=== PATIENT | male | born 1955 | race Caucasian/White ===

== ENCOUNTER 2023-03-02 19:33 | Emergency (ER) | payer MEDICARE, SELFPAY ==
--- NOTE | ~2023-03-02 | XR_ITS ---
EXAMINATION: XR chest 2V DATE: 03/02/2023 22:55 INDICATION: Cough and shortness of breath TECHNIQUE: PA and lateral views of the chest are obtained. COMPARISON: 05/10/2020 FINDINGS: The lungs are free of acute opacities. No pleural effusion or pneumothorax. The cardiomedia stinal silhouette is normal. There is mild thoracic spondylosis. There is a healing anterolateral fra cture of the right sixth rib. Shoulder arthroplasties are noted. IMPRESSION: 1. No acute cardiopulmonary abnormality. Reviewed, dictated and finalized at location L.
--- NOTE | ~2023-03-02 | CT_ITS ---
EXAMINATION: CTA chest PE protocol DATE: 03/03/2023 07:27 INDICATION: Chest pain. COVID-19 positive. TECHNIQUE: Computed tomography angiography (CTA) of the chest was performed with 100 mL Omnipaque-350 intravenous contrast timed to evaluate the pulmonary arteries. Coronal maximum intensity projection 3D-reconstructions were created by the technologist. Automated exposure control and iterative reconst ruction technique were employed. The dose-length product was 1130.11 mGy-cm. COMPARISON: Chest CT 05/05/2012 FINDINGS: There is mild atelectasis bilaterally. No pleural effusion. The heart size is normal. There are coronary artery calcifications. No pericardial effusion. There is no pulmonary embolus. There ar e cysts in the liver measuring up to 3.8 cm. There are masses in the adrenal glands measuring up to 1 3 mm on the left measuring soft tissue attenuation, likely adenomas in the absence of known malignanc y. There is a small sliding hiatal hernia. There are bilateral shoulder arthroplasties. There is assistant associate full professor ana paula anterior wedging of T11 and T12 vertebral bodies. There is mild thoracic spondylosis. IMPRESSION: 1. No pulmonary embolus. Sensitivity is moderately decreased by motion artifact. Reviewed, dictated and finalized at location A. IMPRESSION: 1. No pulmonary embolus. Sensitivity is moderately decreased by motion artifact .
[2023-03-02 20:00] VITALS: BP 107/82; PULSE 83; RESP 18; TEMP 36.3; O2SAT 97
--- NOTE | 2023-03-02 20:07 | ECG_ITS ---
Measurements Intervals [place] Rate: 81 P: 65 TX: 153 QRS: 48 QRSD: 85 T: 52 QT: 351 QTc: 408 Interpretive Statements SINUS RHYTHM NO PREVIOUS ECG AVAILABLE FOR COMPARISON Electronically Signed On 03-03-2023 15:56:40 CDT by Anthony Zavala M.D.
[2023-03-02 20:26] LABS: Basophils Percent Auto 0.2 % (0.2-1.2); Eosinophils Percent Auto 0.2 % (0-4.4); Hematocrit 32.8 % (42.0-52.0); Hemoglobin 10.2 g/dL (14.0-18.0); Immature Granulocyte Absolute 0.02 K/mm3 (0.00-0.031); Immature Granulocyte Percent A 0.4 % (0-0.5); Lymphocytes Absolute Auto 1.33 K/mm3 (0.9-3.2); Lymphocytes Percent Auto 24.7 % (18.3-44.2); Mean Corpuscular HGB Conc 31.1 g/dl (32-36); Mean Corpuscular Hemoglobin 21.5 pg (26-34); Mean Corpuscular Volume 69.1 fl (80-100); Mean Platelet Volume 8.4 fl (7.4-10.4); Monocytes Absolute Auto 0.6 K/mm3 (0.1-0.6); Monocytes Percent Auto 10.9 % (2.6-8.5); Neutrophils Absolute Auto 3.4 K/mm3 (1.3-6.7); Neutrophils Percent Auto 63.6 % (45.5-73.1); Platelet Count Result 300 k/mm3 (150-375); Red Blood Count 4.75 M/mm3 (4.6-6.20); Red Cell Distribution Width 18.6 % (11.5-14.5); White Blood Count 5.4 K/mm3 (4.5-10.0)
[2023-03-02 20:43] LABS: INR 1.1; Prothrombin Time 13.5 Seconds (11.1-14.7)
[2023-03-02 20:44] LABS: Partial Thromboplastin Time 22.8 SECONDS (22.3-36.8)
[2023-03-02 20:50] LABS: Alanine Aminotransferase 92 U/L (6-50); Albumin Level 4.7 g/dL (3.5-5.1); Alkaline Phosphatase 76 U/L (38-126); Anion Gap 11 mmol/L (8-16); Aspartate Amino Transferase 83 U/L (17-59); Bilirubin,Total 0.7 mg/dL (0.2-1.3); Blood Urea Nitrogen 21 mg/dL (9-20); Calcium 9.8 mg/dL (8.4-10.2); Carbon Dioxide 21 mmol/L (22-30); Chloride 104 mmol/L (98-107); Estimated CRCL calculation 100 ml/min; Estimated Glomerular Filt Rate > 60; Glucose 163 mg/dL (65-110); Lipase 41 U/L (23-300); Sodium 136 mmol/L (137-145)
[2023-03-02 20:59] LABS: Platelet Estimate Adequate (Adequate)
[2023-03-02 21:00] LABS: Anisocytosis 2+ (NORMAL); Hypochromasia 1+ (NORMAL); Schistocytes None Seen (NORMAL)
[2023-03-02 21:19] LABS: Troponin I < 0.012 ng/mL (0.000-0.034)
[2023-03-03] VITALS (30 sets, daily range): BP systolic 147–224; BP diastolic 53–213; PULSE 78–108; RESP 13–20; TEMP 36.4; O2SAT 95–100
[2023-03-03 02:36] LABS: Troponin I < 0.012 ng/mL (0.000-0.034)
--- NOTE | 2023-03-03 04:30 | PC.NURSE ---
Patient loses thought process while trying to answer questions. Patient's states that this is new every since patient has been tested positive for COVID-19.
[2023-03-03] MEDS: SODIUM CHLORIDE 0.9% IV 1,000 ML 999 ML IV CONT (05:30)
[2023-03-03] MEDS: ONDANSETRON INJ 4 MG/2 ML VIAL IV PUSH (05:34)
[2023-03-03] MEDS: BENZONATATE 100 MG CAPSULE 200 MG PO (05:41)
[2023-03-03 06:09] LABS: Troponin I 0.015 ng/mL (0.000-0.034)
[2023-03-03 06:37] LABS: D Dimer 0.41 ug/mL (<0.48)
--- NOTE | 2023-03-03 06:45 | ED.GENADULT ---
HPI - General Adult General Chief complaint: Nausea/Vomiting/Diarrhea <Rubén Bravo MD - Last Filed: 03/03/23 06:51> Stated complaint: COVID+, N/V <Rubén Bravo MD - Last Filed: 03/03/23 06:51> Time Seen by Provider: 03/03/23 04:36 <Rubén Bravo MD - Last Filed: 03/03/23 06:51> History of Present Illness HPI narrative: 67-year-old gentleman who presents the emergency department with chief complaint of nausea vomiting cough chest pain with cough. Patient reports that he was diagnosed with COVID-19 on Thursday and was started on Paxlovid patient reports that he has not really been eating and drinking much felt a little short of breath with ambulation and at rest and today he started having nausea and vomiting. Patient reports has not really been able to keep much fluid down reports no diarrhea states that the pain in his chest is more of a pleuritic sharp pain worse with cough. <Rubén Bravo MD - Last Filed: 03/03/23 06:51> Related Data Home medications: Home Medications Medication Instructions Recorded Confirmed adalimumab 40 mg/0.4 mL 40 mg subcut WEEKLY 09/15/22 01/02/23 subcutaneous pen kit (Humira(CF) Pen) atorvastatin 10 mg tablet 10 mg PO DAILY 09/15/22 01/02/23 citalopram 40 mg tablet 20 mg PO DAILY 09/15/22 01/02/23 pantoprazole 40 mg tablet,delayed 40 mg PO DAILY 09/15/22 01/02/23 release adalimumab 40 mg/0.8 mL See Rx Instructions subcut .COMPLEX 02/25/23 subcutaneous syringe kit (Humira) <Rubén Bravo MD - Last Filed: 03/03/23 06:51> Allergies/adverse reactions: Allergies Allergy/AdvReac Type Severity Reaction Status Date / Time No Known Allergies Allergy Verified 03/03/23 04:25 <Rubén Bravo MD - Last Filed: 03/03/23 06:51> Review of Systems Review of Systems: A 10 system review of systems was completed on the patient and is negative except for what is stated in the HPI. Nursing and ancillary documentation was reviewed. <Rubén Bravo MD - Last Filed: 03/03/23 06:51> PMFSH Past Medical History Medical History: Medical History Arthritis Psychosis <Rubén Bravo MD - Last Filed: 03/03/23 06:51> Surgical History Surgical History: Surgical History H/O hand surgery H/O knee surgery H/O shoulder surgery History of carpal tunnel release <Rubén Bravo MD - Last Filed: 03/03/23 06:51> Family History Family History: Family History Mother Cerebrovascular accident <Rubén Bravo MD - Last Filed: 03/03/23 06:51> Social History Social History: Social History Smoking status: Never smoker Alcohol intake: current Substance use: unknown Lack of Transportation: No Lack of Food: Never True Current Housing: I Do Not Have Housing Concerned About Future Housing: No Difficulty Paying Gas/Electric Bills: No Difficulty Paying for Meds: No Currently Unemployed: No Education: High School Diploma/GED Difficulty w/ Childcare or Family Care: No <Rubén Bravo MD - Last Filed: 03/03/23 06:51> Exam Narrative: GENERAL: Well-appearing, well-nourished, and in no acute distress. HEAD: Normocephalic, atraumatic. EYES: PERRLA and EOMI. ENT: Nares clear, no rhinorrhea or epistaxis. Mucous membranes moist. NECK: Supple. CHEST: Clear to auscultation. No respiratory distress. HEART: Regular rate and rhythm. No murmur heard. Normal peripheral pulses. ABDOMEN: Soft, nontender, nondistended, normal active bowel sounds. EXTREMITIES: Normal range of motion. No edema. SKIN: Warm, dry, no rash. NEURO: No focal deficits. Alert and oriented x3. PSYCH: Normal
--- NOTE | 2023-03-03 08:45 | PC.NURSE ---
walking pulse ox - 96% while walking
== END 2023-03-03 08:53 | disposition home or self-care (01) ==
PROVIDERS: Emergency Medicine; Emergency Provider General Practice; PCP Physician Assistant
DX: U07.1 COVID-19 (principal); R11.2 Nausea with vomiting, unspecified; M19.90 Unspecified osteoarthritis, unspecified site; R07.9 Chest pain, unspecified
CPT/HCPCS: 36415; 71046; 71275; 80053; 83690; 84484; 85025; 85380; 85610; 85730; 93005; 96361; 96374; 96375; 99282; 99284; A9270; J0131; J2405; J7030; Q9967

== ENCOUNTER 2023-04-03 08:26 | Outpatient (CLI) | payer MEDICARE, SELFPAY ==
--- NOTE | ~2023-04-03 | XR_ITS ---
EXAMINATION: XR lumbar spine min 4V DATE: 04/03/2023 08:51 INDICATION: Spinal stenosis, lumbar region. TECHNIQUE: 4 views of lumbar spine including flexion and extension views were obtained. COMPARISON: CT chest, abdomen, and pelvis 05/05/2012 FINDINGS: L5 is a transitional segment. There is 6 degrees levocurvature of lumbar spine. There is 3 mm retrolisthesis of L1 on L2 and L2 on L3 and 3 mm anterolisthesis of L3 on L4. There is no abnormal motion with flexion or extension. There is a chronic compression fracture of T11 with 1/5 loss of he ight. There is moderately decreased disc height at T12-L1, mildly decreased disc height at L1-L2, mod erately decreased disc height at L2-L3, mildly decreased disc height at L3-L4, and severely decreased disc height at L4-L5. There is severe bilateral facet joint osteoarthritis from T12-L1 through L4-L5 . IMPRESSION: 1. Severe lumbar spondylosis. Reviewed, dictated and finalized at location A.
--- NOTE | ~2023-04-03 | CT_ITS ---
EXAMINATION: CT lumbar spine wo con DATE: 04/03/2023 08:44 INDICATION: Spinal stenosis. Back pain. TECHNIQUE: Computed tomography (CT) of the lumbar spine was performed without intravenous contrast. A utomated exposure control and iterative reconstruction technique were employed. The dose-length produ ct was 1337.40 mGy-cm. COMPARISON: Lumbar spine radiographs 04/03/2023, CT chest, abdomen, and pelvis 05/05/2012 FINDINGS: L5 is a transitional segment. There is a chronic compression fracture of T11 with 1/5 loss of height. There is 3 mm retrolisthesis of L1 on L2 and 3 mm anterolisthesis of L3 on L4. There is mi ldly decreased disc height at T11-T12, moderately decreased disc height at T12-L1, mildly decreased d isc height at L1-L2, moderately decreased disc height at L2-L3, mildly decreased disc at L3-L4, and s everely decreased disc height at L4-L5 with endplate remodeling. The following disc levels are specif ically discussed: T11-T12: The disc is bulging. There is severe bilateral facet joint osteoarthritis. There is mild kayla ateral neural foraminal stenosis. There is mild central canal stenosis. T12-L1: The disc is bulging. There is severe bilateral facet joint osteoarthritis. There is mild bila teral neural foraminal stenosis. There is mild central canal stenosis. L1-L2: The disc is bulging. There is severe bilateral facet joint osteoarthritis. There is moderate b ilateral neural foraminal stenosis. There is mild central canal stenosis. L2-L3: The disc is bulging. There is severe bilateral facet joint osteoarthritis. There is moderate b ilateral neural foraminal stenosis. There is mild central canal stenosis. L3-L4: The disc is bulging. There is severe bilateral facet joint osteoarthritis. There is moderate b ilateral neural foraminal stenosis. There is moderate central canal stenosis. L4-L5: The disc is bulging. There is severe bilateral facet joint osteoarthritis. There is moderate b ilateral neural foraminal stenosis. There is mild central canal stenosis. L5-S1: The disc does not extend beyond the endplate margin. There is mild bilateral facet joint hyper trophy. There is mild left neural foraminal stenosis. There is no central canal stenosis. IMPRESSION: 1. Severe lumbar spondylosis. Reviewed, dictated and finalized at location A.
== END 2023-04-03 08:27 | disposition home or self-care (01) ==
PROVIDERS: PCP Physician Assistant; Visit Provider Neurological Surgery
DX: M48.061 Spinal stenosis, lumbar region without neurogenic claudication (principal); M47.896 Other spondylosis, lumbar region
CPT/HCPCS: 72110; 72131

== ENCOUNTER 2023-05-29 12:11 | Outpatient (CLI) | payer MEDICARE, SELFPAY ==
[2023-05-29 12:45] LABS: Basophils Absolute Auto 0.1 K/mm3 (0.0-0.1); Basophils Percent Auto 0.8 % (0.2-1.2); Eosinophils Absolute Auto 0.1 K/mm3 (0-0.3); Eosinophils Percent Auto 2.1 % (0-4.4); Hematocrit 28.1 % (42.0-52.0); Immature Granulocyte Absolute 0.01 K/mm3 (0.00-0.031); Immature Granulocyte Percent A 0.2 % (0-0.5); Lymphocytes Absolute Auto 2.43 K/mm3 (0.9-3.2); Lymphocytes Percent Auto 36.9 % (18.3-44.2); Mean Corpuscular HGB Conc 28.5 g/dl (32-36); Mean Corpuscular Hemoglobin 20.1 pg (26-34); Mean Corpuscular Volume 70.4 fl (80-100); Mean Platelet Volume 8.8 fl (7.4-10.4); Monocytes Absolute Auto 0.8 K/mm3 (0.1-0.6); Neutrophils Absolute Auto 3.2 K/mm3 (1.3-6.7); Platelet Count Result 412 k/mm3 (150-375); Red Blood Count 3.99 M/mm3 (4.6-6.20); Red Cell Distribution Width 17.3 % (11.5-14.5); White Blood Count 6.6 K/mm3 (4.5-10.0)
[2023-05-29 12:55] LABS: Iron 24 ug/dL (49-181)
[2023-05-29 13:08] LABS: Percent Iron Saturation 5 % (20-50)
[2023-05-29 13:23] LABS: Anisocytosis 2+ (NORMAL); Hypochromasia 2+ (NORMAL); Microcytosis 1+ (NORMAL); Ovalocytes 1+ (NORMAL); Schistocytes None Seen (NORMAL)
[2023-05-29 13:32] LABS: Ferritin 9.97 ng/mL (11.1-264)
== END 2023-05-29 12:12 | disposition home or self-care (01) ==
PROVIDERS: PCP Physician Assistant; Visit Provider Physician Assistant
DX: D64.9 Anemia, unspecified (principal)
CPT/HCPCS: 36415; 82728; 83540; 83550; 85025

== ENCOUNTER 2023-06-18 08:00 | Outpatient (NON) | payer MEDICARE, SELFPAY | END 2023-06-18 08:01 | disposition home or self-care (01) | LOC: ANHLAB 06-19 08:07 | PROVIDERS: PCP Physician Assistant; Visit Provider Internal Medicine Gastroenterology | DX: D50.9 Iron deficiency anemia, unspecified (principal) | CPT/HCPCS: 88305; 88342 ==

== ENCOUNTER 2023-06-18 09:36 | Day surgery (SDC) | payer MEDICARE, SELFPAY ==
[2023-06-04 08:34] VITALS: BMI 37.6
[2023-06-05 12:23] VITALS: BMI 36.6
--- NOTE | 2023-06-17 12:50 | WPDANESEPPF ---
Anes - Initial Pre Proc Eval Procedure: Operation Date: 06/18/23 11:30 Proposed Procedures p Esophagogastroduodenoscopy - Rex Cedeño MD s Diagnostic Colonoscopy - Rex Cedeño MD Date/Time: 06/17/23 12:50 Surgeon: Rex Cedeño MD Pre Op Diagnosis: Iron Deficiency Anemia Patient Data Age: 67 Gender: M Height: 1.8 m Weight: 119 kg Allergies Allergy/AdvReac Type Severity Reaction Status Date / Time No Known Allergies Allergy Verified 06/18/23 10:20 Home Medications Medication Instructions Recorded Confirmed Type adalimumab 40 mg/0.4 mL 40 mg subcut WEEKLY 09/15/22 06/18/23 History subcutaneous pen kit (Humira(CF) Pen) citalopram 40 mg tablet 20 mg PO DAILY 09/15/22 06/18/23 History pantoprazole 40 mg tablet,delayed 40 mg PO DAILY 09/15/22 06/18/23 History release buspirone 5 mg tablet See Rx Instructions .Route 02/15/23 06/18/23 Rx .COMPLEX #300 tabs gabapentin 400 mg capsule See Rx Instructions .Route 02/15/23 06/18/23 Rx .COMPLEX #200 caps amlodipine 5 mg tablet 5 mg PO DAILY #90 tabs 02/16/23 06/18/23 Rx adalimumab 40 mg/0.8 mL See Rx Instructions subcut .COMPLEX 02/25/23 06/18/23 History subcutaneous syringe kit (Humira) methotrexate sodium 2.5 mg tablet 7.5 mg PO WEEKLY #3 tabs 02/25/23 06/18/23 Rx lisinopril 40 mg tablet See Rx Instructions .Route 03/23/23 06/18/23 Rx .COMPLEX #100 tabs fluticasone 250 mcg-salmeterol 50 1 inh inhalation BID #60 ea 03/31/23 06/18/23 Rx mcg/dose blistr powdr for inhalation (Advair Diskus) folic acid 1 mg tablet 2 mg PO DAILY #180 tabs 03/31/23 06/18/23 Rx atorvastatin 10 mg tablet 10 mg PO DAILY #90 tabs 04/20/23 06/18/23 Rx tramadol 50 mg tablet 50 mg PO Q6H PRN Back Pain 05/05/23 06/18/23 History ferrous sulfate 325 mg (65 mg 325 mg PO BID #60 tabs 05/29/23 06/18/23 Rx iron) tablet primidone 50 mg tablet 150 mg PO QHS #270 tabs 06/01/23 06/18/23 Rx sodium,potassium,mag sulfates 17.5 See Rx Instructions PO .COMPLEX 06/04/23 06/18/23 Rx gram-3.13 gram-1.6 gram oral soln #354 mL (Suprep Bowel Prep Kit) acetaminophen 650 mg 650 mg PO Q12H 06/05/23 06/18/23 History tablet,extended release (Tylenol Arthritis Pain) glucosamine sulf dipot 1 cap PO DAILY 06/05/23 06/18/23 History chlr,msm,chond 550 mg-C 30 mg-jose m 1 mg capsule (Glucosamine Chondroitin) naproxen sodium 220 mg tablet 220 mg PO BID PRN Back Pain 06/05/23 06/18/23 History (Aleve) Patient hx anesthesia problems: none Family hx anesthesia problems: none Results Review: All pre-operative results and documents have been reviewed as part of the pre-operative evaluation. [facility] Past Medical History Medical History (Updated 06/18/23 @ 11:03 by Rex Cedeño MD) Anemia Arthritis Essential tremor HTN (hypertension) Hyperlipidemia Low back pain Lumbar stenosis with neurogenic claudication Obesity (BMI 30-39.9) Psychosis Surgical History Surgical History H/O hand surgery H/O knee surgery H/O shoulder surgery History of carpal tunnel release Family History Family History Mother Cerebrovascular accident Social History Social History Smoking status: Never smoker Alcohol intake: current Substance use: never Substance use type: does not use Lack of Transportation: No Lack of Food: Never True Current Housing: I Do Not Have Housing Concerned About Future Housing: No Difficulty Paying Gas/Electric Bills: No Difficulty Paying for Meds: No Currently Unemployed: No Education: High School Diploma/GED Difficulty w/ Childcare or Family Care: No Living arrangements: with family Spiritual care concerns: No Anes - Eval Final PreProcedure Day of Procedure 06/17/23 12:50 Patient weight: obese Heart: regular rate and rhythm L
[2023-06-18 10:00] VITALS: BP 164/75; PULSE 66; RESP 20; TEMP 36.1; O2SAT 99
[2023-06-18] MEDS: LACTATED RINGERS 1,000 ML 150 ML IV CONT (10:31)
--- NOTE | 2023-06-18 11:01 | PM.HPGS ---
History of Present Illness History of Present Illness Consent: Risks, benefits, and alternatives have been discussed and questions answered. Patient agrees to proceed with procedure. Chief complaint: Iron Deficiency Anemia Narrative: Sarath Pineda is a 67 year old male Presents for colonoscopy an EGD. Patient has back problems. Was anticipated to have surgery the end of April. Upon presenting for preoperative testing was found to have profound anemia. Lab studies revealed this to be iron deficient anemia. Patient denies any obvious bleeding. He has no nose bleeds. No bruises. No obvious blood in his stool. He has not had a stool Hemoccult. Patient does take significant NSAIDs because of back pain. This includes ibuprofen and Aleve. Family history noncontributory. Patient referred for GI endoscopy because of anemia. Review of Systems Review of Systems: Review of systems noncontributory. [facility] Past Medical History Medical History (Updated 06/18/23 @ 11:03 by Rex Cedeño MD) Anemia Arthritis Essential tremor HTN (hypertension) Hyperlipidemia Low back pain Lumbar stenosis with neurogenic claudication Obesity (BMI 30-39.9) Psychosis Surgical History Surgical History H/O hand surgery H/O knee surgery H/O shoulder surgery History of carpal tunnel release Family History Family History Mother Cerebrovascular accident Social History Social History Smoking status: Never smoker Alcohol intake: current Substance use: never Substance use type: does not use Lack of Transportation: No Lack of Food: Never True Current Housing: I Do Not Have Housing Concerned About Future Housing: No Difficulty Paying Gas/Electric Bills: No Difficulty Paying for Meds: No Currently Unemployed: No Education: High School Diploma/GED Difficulty w/ Childcare or Family Care: No Living arrangements: with family Spiritual care concerns: No Meds Home Medications and Allergies Home Medications Medication Instructions Recorded Confirmed Type adalimumab 40 mg/0.4 mL 40 mg subcut WEEKLY 09/15/22 06/18/23 History subcutaneous pen kit (Humira(CF) Pen) citalopram 40 mg tablet 20 mg PO DAILY 09/15/22 06/18/23 History pantoprazole 40 mg tablet,delayed 40 mg PO DAILY 09/15/22 06/18/23 History release buspirone 5 mg tablet See Rx Instructions .Route 02/15/23 06/18/23 Rx .COMPLEX #300 tabs gabapentin 400 mg capsule See Rx Instructions .Route 02/15/23 06/18/23 Rx .COMPLEX #200 caps amlodipine 5 mg tablet 5 mg PO DAILY #90 tabs 02/16/23 06/18/23 Rx adalimumab 40 mg/0.8 mL See Rx Instructions subcut .COMPLEX 02/25/23 06/18/23 History subcutaneous syringe kit (Humira) methotrexate sodium 2.5 mg tablet 7.5 mg PO WEEKLY #3 tabs 02/25/23 06/18/23 Rx lisinopril 40 mg tablet See Rx Instructions .Route 03/23/23 06/18/23 Rx .COMPLEX #100 tabs fluticasone 250 mcg-salmeterol 50 1 inh inhalation BID #60 ea 03/31/23 06/18/23 Rx mcg/dose blistr powdr for inhalation (Advair Diskus) folic acid 1 mg tablet 2 mg PO DAILY #180 tabs 03/31/23 06/18/23 Rx atorvastatin 10 mg tablet 10 mg PO DAILY #90 tabs 04/20/23 06/18/23 Rx tramadol 50 mg tablet 50 mg PO Q6H PRN Back Pain 05/05/23 06/18/23 History ferrous sulfate 325 mg (65 mg 325 mg PO BID #60 tabs 05/29/23 06/18/23 Rx iron) tablet primidone 50 mg tablet 150 mg PO QHS #270 tabs 06/01/23 06/18/23 Rx sodium,potassium,mag sulfates 17.5 See Rx Instructions PO .COMPLEX 06/04/23 06/18/23 Rx gram-3.13 gram-1.6 gram oral soln #354 mL (Suprep Bowel Prep Kit) acetaminophen 650 mg 650 mg PO Q12H 06/05/23 06/18/23 History tablet,extended release (Tylenol Arthritis Pain) glucosamine sulf dipot 1 cap PO DAILY 06/05/23 06/18/23 History chlr,msm,chond 550 mg-C 30 mg-m
[2023-06-18 12:47] VITALS: BP 105/69; PULSE 75; RESP 16; O2SAT 97
--- NOTE | 2023-06-18 12:54 | WPDANESPN ---
Anes - Prog Note Post-Op Date/Time: 06/18/23 12:54 Cardiovascular status: normal Respiratory status: normal Airway patency: baseline Mental status: baseline Post-Op hydration status: normal Vital Signs: Last Vital Signs Temp 36.1 C L 06/18/23 10:00 Pulse 75 06/18/23 12:50 Resp 16 06/18/23 12:50 BP 105/69 06/18/23 12:50 Pulse Ox 97 06/18/23 12:50 O2 Del Method Room Air 06/18/23 12:50 Pain Score (VAS): 0 I/O: Intake & Output 06/17/23 06/18/23 06/18/23 23:59 07:59 15:59 Intake Total 200 Balance 200 Post-procedural complaints: none Patient Feedback: Patient satisfied with anesthetic care.
[2023-06-18 12:57] VITALS: BP 136/74; PULSE 72; RESP 16; O2SAT 98
[2023-06-18 13:07] VITALS: BP 138/75; PULSE 75; RESP 16; O2SAT 98
== END 2023-06-18 13:22 | disposition home or self-care (01) ==
PROVIDERS: PCP Physician Assistant; Visit Provider Internal Medicine Gastroenterology
PROC: 0DJ08ZZ Inspection of Upper Intestinal Tract, Via Natural or Artificial Opening Endoscopic (ICD-10-PCS; CPT 43235; principal; 2023-06-18 11:30)
PROC: 0DJD8ZZ Inspection of Lower Intestinal Tract, Via Natural or Artificial Opening Endoscopic (ICD-10-PCS; CPT 45378; 2023-06-18 11:30)
DX: D50.9 Iron deficiency anemia, unspecified (principal)
CPT/HCPCS: 45378; 43239

== ENCOUNTER 2023-06-25 11:47 | Outpatient (CLI) | payer MEDICARE, SELFPAY ==
[2023-06-25 13:58] LABS: Basophils Percent Auto 0.5 % (0.2-1.2); Eosinophils Absolute Auto 0.1 K/mm3 (0-0.3); Eosinophils Percent Auto 1.4 % (0-4.4); Hematocrit 36.8 % (42.0-52.0); Hemoglobin 10.9 g/dL (14.0-18.0); Immature Granulocyte Absolute 0.01 K/mm3 (0.00-0.031); Immature Granulocyte Percent A 0.2 % (0-0.5); Lymphocytes Percent Auto 38.1 % (18.3-44.2); Mean Corpuscular HGB Conc 29.6 g/dl (32-36); Mean Corpuscular Volume 77.6 fl (80-100); Monocytes Absolute Auto 0.7 K/mm3 (0.1-0.6); Monocytes Percent Auto 11.6 % (2.6-8.5); Neutrophils Percent Auto 48.2 % (45.5-73.1); Platelet Count Result 338 k/mm3 (150-375); Red Blood Count 4.74 M/mm3 (4.6-6.20); Red Cell Distribution Width 24.7 % (11.5-14.5); White Blood Count 6.3 K/mm3 (4.5-10.0)
[2023-06-25 14:34] LABS: Anisocytosis 1+ (NORMAL); Hypochromasia 1+ (NORMAL); Ovalocytes 1+ (NORMAL); Platelet Estimate Adequate (Adequate); Schistocytes None Seen (NORMAL)
[2023-06-25 16:48] LABS: Iron 242 ug/dL (49-181)
[2023-06-25 17:03] LABS: Percent Iron Saturation 52 % (20-50)
== END 2023-06-25 11:48 | disposition home or self-care (01) ==
PROVIDERS: PCP Physician Assistant; Visit Provider Physician Assistant
DX: D50.9 Iron deficiency anemia, unspecified (principal); D64.9 Anemia, unspecified
CPT/HCPCS: 36415; 82728; 83540; 83550; 85025

== ENCOUNTER 2023-07-14 11:44 | Outpatient (CLI) | payer MEDICARE, SELFPAY ==
[2023-07-14 12:13] LABS: Basophils Absolute Auto 0.1 K/mm3 (0.0-0.1); Basophils Percent Auto 0.7 % (0.2-1.2); Eosinophils Absolute Auto 0.1 K/mm3 (0-0.3); Eosinophils Percent Auto 1.2 % (0-4.4); Hematocrit 39.3 % (42.0-52.0); Hemoglobin 12.2 g/dL (14.0-18.0); Immature Granulocyte Absolute 0.01 K/mm3 (0.00-0.031); Immature Granulocyte Percent A 0.1 % (0-0.5); Lymphocytes Absolute Auto 2.91 K/mm3 (0.9-3.2); Lymphocytes Percent Auto 38.1 % (18.3-44.2); Mean Corpuscular Hemoglobin 24.2 pg (26-34); Mean Platelet Volume 8.3 fl (7.4-10.4); Monocytes Absolute Auto 0.8 K/mm3 (0.1-0.6); Neutrophils Absolute Auto 3.8 K/mm3 (1.3-6.7); Neutrophils Percent Auto 49.9 % (45.5-73.1); Platelet Count Result 333 k/mm3 (150-375); Red Blood Count 5.04 M/mm3 (4.6-6.20); Red Cell Distribution Width 22.2 % (11.5-14.5); White Blood Count 7.6 K/mm3 (4.5-10.0)
[2023-07-14 12:55] LABS: Anisocytosis 2+ (NORMAL); Ovalocytes 1+ (NORMAL); Platelet Estimate Adequate (Adequate); Schistocytes None Seen (NORMAL)
[2023-07-14 13:02] LABS: Iron 39 ug/dL (49-181)
[2023-07-14 13:11] LABS: Percent Iron Saturation 8 % (20-50)
== END 2023-07-14 11:45 | disposition home or self-care (01) ==
LOC: ANHLAB 11:46
PROVIDERS: PCP Physician Assistant; Visit Provider Physician Assistant
DX: D64.9 Anemia, unspecified (principal); D50.9 Iron deficiency anemia, unspecified
CPT/HCPCS: 36415; 82728; 83540; 83550; 85025

== ENCOUNTER 2023-08-20 06:02 | Day surgery (SDC) | payer MEDICARE, SELFPAY ==
[2023-06-23 14:10] VITALS: BMI 36.4
[2023-07-30 09:56] VITALS: BMI 36.8
[2023-08-20 07:07] VITALS: BMI 29.7
[2023-08-20 07:26] VITALS: BP 161/81; PULSE 65; RESP 20; TEMP 35.9; O2SAT 96
--- NOTE | 2023-08-20 07:33 | PM.HPGS ---
History of Present Illness History of Present Illness Consent: Risks, benefits, and alternatives have been discussed and questions answered. Patient agrees to proceed with procedure. Chief complaint: Acute Gastric Ulcer Narrative: Sarath Pineda is a 67 year old male he presents for EGD. Two months ago an EGD was performed which found patient to have gastric ulcer. Patient has now been on therapy with iron replacements was all 40mg p.o. daily. He abdominal pain. He has noticed no bleeding. His energy level has resolved. Presents today for follow-up EGD to document healing of ulcer. Review of Systems Review of Systems: Review of systems is noncontributory. [facility] Past Medical History Medical History (Updated 08/20/23 @ 07:35 by Rex Cedeño MD) Anemia Arthritis Essential tremor HTN (hypertension) Hyperlipidemia Low back pain Lumbar stenosis with neurogenic claudication Obesity (BMI 30-39.9) Psychosis Surgical History Surgical History H/O hand surgery H/O knee surgery H/O shoulder surgery History of carpal tunnel release Family History Family History Mother Cerebrovascular accident Social History Social History Smoking status: Never smoker Alcohol intake: current Substance use: never Substance use type: does not use Lack of Transportation: No Lack of Food: Never True Current Housing: I Do Not Have Housing Concerned About Future Housing: No Difficulty Paying Gas/Electric Bills: No Difficulty Paying for Meds: No Currently Unemployed: No Education: High School Diploma/GED Difficulty w/ Childcare or Family Care: No Living arrangements: with family Spiritual care concerns: No Meds Home Medications and Allergies Home Medications Medication Instructions Recorded Confirmed Type gabapentin 400 mg capsule See Rx Instructions .Route 02/15/23 07/30/23 Rx .COMPLEX #200 caps amlodipine 5 mg tablet 5 mg PO DAILY #90 tabs 02/16/23 08/20/23 Rx adalimumab 40 mg/0.8 mL See Rx Instructions subcut .COMPLEX 02/25/23 08/20/23 History subcutaneous syringe kit (Humira) methotrexate sodium 2.5 mg tablet 7.5 mg PO WEEKLY #3 tabs 02/25/23 07/30/23 Rx lisinopril 40 mg tablet See Rx Instructions .Route 03/23/23 07/30/23 Rx .COMPLEX #100 tabs fluticasone 250 mcg-salmeterol 50 1 inh inhalation BID #60 ea 03/31/23 07/30/23 Rx mcg/dose blistr powdr for inhalation (Advair Diskus) folic acid 1 mg tablet 2 mg PO DAILY #180 tabs 03/31/23 07/30/23 Rx sodium,potassium,mag sulfates 17.5 See Rx Instructions PO .COMPLEX 06/04/23 06/18/23 Rx gram-3.13 gram-1.6 gram oral soln #354 mL (Suprep Bowel Prep Kit) acetaminophen 650 mg 650 mg PO Q12H 06/05/23 08/20/23 History tablet,extended release (Tylenol Arthritis Pain) glucosamine sulf dipot 1 cap PO DAILY 06/05/23 07/30/23 History chlr,msm,chond 550 mg-C 30 mg-jose m 1 mg capsule (Glucosamine Chondroitin) atorvastatin 10 mg tablet See Rx Instructions .Route 06/29/23 08/20/23 Rx .COMPLEX #100 tabs citalopram 40 mg tablet 40 mg PO DAILY #90 tabs 07/06/23 07/30/23 Rx ferrous sulfate 325 mg (65 mg 325 mg PO DAILY 07/30/23 07/30/23 History iron) tablet buspirone 5 mg tablet See Rx Instructions .Route 08/18/23 08/20/23 Rx .COMPLEX #300 tabs pantoprazole 40 mg tablet,delayed See Rx Instructions .Route 08/18/23 Rx release .COMPLEX #100 tabs primidone 50 mg tablet See Rx Instructions .Route 08/18/23 Rx .COMPLEX #270 tabs Allergies Allergy/AdvReac Type Severity Reaction Status Date / Time No Known Allergies Allergy Verified 08/20/23 06:59 Vital Signs Vital Signs - 24 hr 08/20/23 07:26 Temperature 96.6 F L Pulse Rate 65 Respiratory Rate 20 Blood Pressure 161/81 H Pulse Oximetry 96 Oxygen Delivery Room Air
[2023-08-20] MEDS: LACTATED RINGERS 1,000 ML 150 ML IV CONT (07:55)
--- NOTE | 2023-08-20 07:56 | WPDANESEPPF ---
Anes - Initial Pre Proc Eval Procedure: Operation Date: 08/20/23 08:00 Proposed Procedures p Esophagogastroduodenoscopy - Rex Cedeño MD Date/Time: 08/20/23 07:56 Surgeon: Rex Cedeño MD Pre Op Diagnosis: Acute Gastric Ulcer Patient Data Age: 67 Gender: M Height: 1.8 m Weight: 96.6 kg Last Vital Signs Temp 35.9 C L 08/20/23 07:26 Pulse 65 08/20/23 07:26 Resp 20 08/20/23 07:26 BP 161/81 H 08/20/23 07:26 Pulse Ox 96 08/20/23 07:26 O2 Del Method Room Air 08/20/23 07:26 Allergies Allergy/AdvReac Type Severity Reaction Status Date / Time No Known Allergies Allergy Verified 08/20/23 06:59 Home Medications Medication Instructions Recorded Confirmed Type gabapentin 400 mg capsule See Rx Instructions .Route 02/15/23 07/30/23 Rx .COMPLEX #200 caps amlodipine 5 mg tablet 5 mg PO DAILY #90 tabs 02/16/23 08/20/23 Rx adalimumab 40 mg/0.8 mL See Rx Instructions subcut .COMPLEX 02/25/23 08/20/23 History subcutaneous syringe kit (Humira) methotrexate sodium 2.5 mg tablet 7.5 mg PO WEEKLY #3 tabs 02/25/23 07/30/23 Rx lisinopril 40 mg tablet See Rx Instructions .Route 03/23/23 07/30/23 Rx .COMPLEX #100 tabs fluticasone 250 mcg-salmeterol 50 1 inh inhalation BID #60 ea 03/31/23 07/30/23 Rx mcg/dose blistr powdr for inhalation (Advair Diskus) folic acid 1 mg tablet 2 mg PO DAILY #180 tabs 03/31/23 07/30/23 Rx sodium,potassium,mag sulfates 17.5 See Rx Instructions PO .COMPLEX 06/04/23 06/18/23 Rx gram-3.13 gram-1.6 gram oral soln #354 mL (Suprep Bowel Prep Kit) acetaminophen 650 mg 650 mg PO Q12H 06/05/23 08/20/23 History tablet,extended release (Tylenol Arthritis Pain) glucosamine sulf dipot 1 cap PO DAILY 06/05/23 07/30/23 History chlr,msm,chond 550 mg-C 30 mg-jose m 1 mg capsule (Glucosamine Chondroitin) atorvastatin 10 mg tablet See Rx Instructions .Route 06/29/23 08/20/23 Rx .COMPLEX #100 tabs citalopram 40 mg tablet 40 mg PO DAILY #90 tabs 07/06/23 07/30/23 Rx ferrous sulfate 325 mg (65 mg 325 mg PO DAILY 07/30/23 07/30/23 History iron) tablet buspirone 5 mg tablet See Rx Instructions .Route 08/18/23 08/20/23 Rx .COMPLEX #300 tabs pantoprazole 40 mg tablet,delayed See Rx Instructions .Route 08/18/23 Rx release .COMPLEX #100 tabs primidone 50 mg tablet See Rx Instructions .Route 08/18/23 Rx .COMPLEX #270 tabs Patient hx anesthesia problems: post op nausea/vomiting Family hx anesthesia problems: none Results Review: All pre-operative results and documents have been reviewed as part of the pre-operative evaluation. [facility] Past Medical History Medical History Anemia Arthritis Essential tremor HTN (hypertension) Hyperlipidemia Low back pain Lumbar stenosis with neurogenic claudication Obesity (BMI 30-39.9) Psychosis Surgical History Surgical History H/O hand surgery H/O knee surgery H/O shoulder surgery History of carpal tunnel release Family History Family History Mother Cerebrovascular accident Social History Social History Smoking status: Never smoker Alcohol intake: current Substance use: never Substance use type: does not use Lack of Transportation: No Lack of Food: Never True Current Housing: I Do Not Have Housing Concerned About Future Housing: No Difficulty Paying Gas/Electric Bills: No Difficulty Paying for Meds: No Currently Unemployed: No Education: High School Diploma/GED Difficulty w/ Childcare or Family Care: No Living arrangements: with family Spiritual care concerns: No Anes - Eval Final PreProcedure Day of Procedure 08/20/23 07:56 Patient weight: overweight Heart: regular rate and rhythm Lungs: clear to auscultation A
[2023-08-20 08:19] VITALS: BP 162/77; PULSE 60; RESP 14; O2SAT 96
[2023-08-20 08:29] VITALS: BP 165/76; PULSE 61; RESP 16; O2SAT 99
[2023-08-20 08:39] VITALS: BP 169/80; PULSE 62; RESP 15; O2SAT 98
--- NOTE | 2023-08-20 09:18 | WPDANESPN ---
Anes - Prog Note Post-Op Date/Time: 08/20/23 09:18 Cardiovascular status: normal Respiratory status: normal Airway patency: baseline Mental status: baseline Post-Op hydration status: normal Vital Signs: Last Vital Signs Temp 35.9 C L 08/20/23 07:26 Pulse 62 08/20/23 08:39 Resp 15 08/20/23 08:39 BP 169/80 H 08/20/23 08:39 Pulse Ox 98 08/20/23 08:39 O2 Del Method Room Air 08/20/23 08:39 Pain Score (VAS): 0 I/O: Intake & Output 08/19/23 08/20/23 08/20/23 23:59 07:59 15:59 Intake Total 600 Balance 600 Patient Feedback: Patient satisfied with anesthetic care.
== END 2023-08-20 08:44 | disposition home or self-care (01) ==
PROVIDERS: PCP Physician Assistant; Visit Provider Internal Medicine Gastroenterology
PROC: 0DJ08ZZ Inspection of Upper Intestinal Tract, Via Natural or Artificial Opening Endoscopic (ICD-10-PCS; CPT 43235; principal; 2023-08-20 08:00)
DX: K31.89 Other diseases of stomach and duodenum (principal)
CPT/HCPCS: 43239

== ENCOUNTER 2023-09-22 10:15 | Outpatient (CLI) | payer MEDICARE, SELFPAY ==
[2023-09-22 11:09] LABS: Basophils Absolute Auto 0.1 K/mm3 (0.0-0.1); Basophils Percent Auto 0.8 % (0.2-1.2); Eosinophils Absolute Auto 0.2 K/mm3 (0-0.3); Eosinophils Percent Auto 2.4 % (0-4.4); Hemoglobin 14.8 g/dL (14.0-18.0); Immature Granulocyte Absolute 0.01 K/mm3 (0.00-0.031); Immature Granulocyte Percent A 0.2 % (0-0.5); Lymphocytes Absolute Auto 2.89 K/mm3 (0.9-3.2); Lymphocytes Percent Auto 46.8 % (18.3-44.2); Mean Corpuscular HGB Conc 32.9 g/dl (32-36); Mean Corpuscular Hemoglobin 28.2 pg (26-34); Mean Corpuscular Volume 85.7 fl (80-100); Mean Platelet Volume 8.9 fl (7.4-10.4); Monocytes Absolute Auto 0.6 K/mm3 (0.1-0.6); Monocytes Percent Auto 9.1 % (2.6-8.5); Neutrophils Absolute Auto 2.5 K/mm3 (1.3-6.7); Neutrophils Percent Auto 40.7 % (45.5-73.1); Platelet Count Result 237 k/mm3 (150-375); Red Blood Count 5.25 M/mm3 (4.6-6.20); Red Cell Distribution Width 18.3 % (11.5-14.5); White Blood Count 6.2 K/mm3 (4.5-10.0)
[2023-09-22 11:21] LABS: Alanine Aminotransferase 43 U/L (6-50); Albumin Level 4.5 g/dL (3.5-5.1); Alkaline Phosphatase 56 U/L (38-126); Anion Gap 6 mmol/L (8-16); Aspartate Amino Transferase 45 U/L (17-59); Bilirubin,Total 0.5 mg/dL (0.2-1.3); Blood Urea Nitrogen 15 mg/dL (9-20); Calcium 9.7 mg/dL (8.4-10.2); Carbon Dioxide 28 mmol/L (22-30); Chloride 100 mmol/L (98-107); Cholesterol 168 mg/dL (0-200); Estimated Glomerular Filt Rate > 60; Glucose 108 mg/dL (65-110); HDL Direct 62 mg/dL; Potassium 4.2 mmol/L (3.4-5.0); Sodium 134 mmol/L (137-145); Triglycerides 164 mg/dL (<150)
[2023-09-22 11:32] LABS: LDL Cholesterol Direct 78 mg/dL
[2023-09-22 11:52] LABS: Prostate Specific Antigen 0.5 ng/mL (< OR = 4.0); Thyroid Stimulating Hormone 0.882 uIU/mL (0.465-4.680)
[2023-09-22 12:24] LABS: Iron 116 ug/dL (49-181)
[2023-09-22 12:31] LABS: Folic Acid > 20.0 ng/mL (2.76->20)
[2023-09-22 12:33] LABS: Percent Iron Saturation 33 % (20-50)
== END 2023-09-22 10:16 | disposition home or self-care (01) ==
PROVIDERS: PCP Physician Assistant; Visit Provider Physician Assistant
DX: D50.9 Iron deficiency anemia, unspecified (principal); R53.83 Other fatigue; E78.5 Hyperlipidemia, unspecified; Z12.5 Encounter for screening for malignant neoplasm of prostate
CPT/HCPCS: 36415; 80053; 80061; 82607; 82728; 82746; 83540; 83550; 84153; 84443; 85025; G0103

== ENCOUNTER 2024-02-03 08:19 | Outpatient (CLI) | payer MEDICARE, SELFPAY ==
--- NOTE | ~2024-02-03 | XR_ITS ---
Clinical Indication: Cough PA and lateral views of the chest: Comparison: 03/02/2023 Findings: Calcific density in the right lung base region is compatible sequela of underlying rib frac ture based on prior CT scan. No pulmonary abnormality evident.. Cardiomediastinal silhouette is withi n normal limits. Bilateral shoulder arthroplasties are present. Impression: No significant abnormality. Reviewed, dictated and finalized at location . [facility]MASTER Impression: No significant abnormality.
== END 2024-02-03 08:20 | disposition home or self-care (01) ==
LOC: ANHIMG 08:24
PROVIDERS: PCP Physician Assistant; Visit Provider Physician Assistant
DX: R05.9 Cough, unspecified (principal)
CPT/HCPCS: 71046

== ENCOUNTER 2024-03-31 11:43 | Observation (INO) | payer MEDICARE, SELFPAY ==
[2024-03-31] VITALS (17 sets, daily range): BP systolic 160–199; BP diastolic 56–92; PULSE 69–79; RESP 12–16; TEMP 36.2–36.7; O2SAT 95–100; BMI 34.9
--- NOTE | ~2024-03-31 | XR_ITS ---
EXAMINATION: XR chest 2V 03/31/2024 12:22 INDICATION: Chest pain PROCEDURE: 2 view chest COMPARISON: 02/03/2024 and 03/02/2023 FINDINGS: The lungs are clear. The cardiomediastinal silhouette is within normal limits. There are no pleural effusions. There is no pneumothorax suspected. There are bilateral shoulder arthroplasti es. IMPRESSION: 1: NO ACUTE CARDIOPULMONARY DISEASE. Reviewed, dictated and finalized at location B.
--- NOTE | ~2024-03-31 | CT_ITS ---
EXAMINATION: CT brain wo con DATE: 03/31/2024 12:47 INDICATION: Dizziness. Hypertension. TECHNIQUE: Computed tomography (CT) of the head was performed without intravenous contrast. The dose- length product was 681.00 mGy-cm. Automated exposure control and iterative reconstruction technique w ere employed. COMPARISON: CT dated 07/06/2007 FINDINGS: Brain parenchymal volume is normal for age. No acute intracranial hemorrhage, infarction, m ass or mass effect. No ventriculomegaly or midline shift. Normal hollingsworth-white differentiation. IMPRESSION: 1. No acute intracranial abnormality. Reviewed, dictated and finalized at location B.
--- NOTE | 2024-03-31 11:50 | ECG_ITS ---
SEE SCANNED COPY FOR CONFIRMED REPORT MTDD
[2024-03-31 12:09] LABS: Basophils Absolute Auto 0.1 K/mm3 (0.0-0.1); Basophils Percent Auto 0.8 % (0.2-1.2); Eosinophils Absolute Auto 0.2 K/mm3 (0-0.3); Eosinophils Percent Auto 2.4 % (0-4.4); Hematocrit 42.1 % (42.0-52.0); Hemoglobin 14.9 g/dL (14.0-18.0); Immature Granulocyte Absolute 0.01 K/mm3 (0.00-0.031); Immature Granulocyte Percent A 0.2 % (0-0.5); Lymphocytes Absolute Auto 3.08 K/mm3 (0.9-3.2); Mean Corpuscular HGB Conc 35.4 g/dl (32-36); Mean Corpuscular Hemoglobin 31.8 pg (26-34); Mean Platelet Volume 8.7 fl (7.4-10.4); Monocytes Absolute Auto 0.7 K/mm3 (0.1-0.6); Monocytes Percent Auto 10.5 % (2.6-8.5); Neutrophils Absolute Auto 2.6 K/mm3 (1.3-6.7); Neutrophils Percent Auto 39.1 % (45.5-73.1); Platelet Count Result 242 k/mm3 (150-375); Red Blood Count 4.68 M/mm3 (4.6-6.20); White Blood Count 6.6 K/mm3 (4.5-10.0)
--- NOTE | 2024-03-31 12:18 | ED.CHESTPAIN ---
HPI - Chest Pain General Chief Complaint: Chest Pain Stated Complaint: HTN Time Seen by Provider: 03/31/24 12:36 Source: patient, RN notes reviewed and old records reviewed Mode of arrival: ambulatory History of Present Illness HPI narrative: This is a 68 year old male with history of hypertension who presents for evaluation chest pain and hypertension. He has noticed that his blood pressure has been elevated for 4 months. He was taking amlodipine 5 mg but it was increased 4 months ago. He also reports he was recently started on hydralazine twice a day. His blood pressure is not improving so he went to urgent care. He also reports he has been having headaches and chest pain for month. He states he has pain across his chest that is constant. He is unable to fully describe pain because he has chronic pain any way. He also repoorts shortness of breath. He is concerned that his blood pressure is high despite medication. MD complaint: chest pain Related Data Home Medications Medication Instructions Recorded Confirmed adalimumab 40 mg/0.8 mL 40 mg subcut WEEKLY 02/25/23 03/31/24 subcutaneous syringe kit (Humira) acetaminophen 650 mg 650 mg PO Q12H 06/05/23 03/31/24 tablet,extended release (Tylenol Arthritis Pain) glucosamine sulf dipot 1 cap PO DAILY 06/05/23 03/31/24 chlr,msm,chond 550 mg-C 30 mg-jose m 1 mg capsule (Glucosamine Chondroitin) ferrous sulfate 325 mg (65 mg 325 mg PO DAILY 07/30/23 03/31/24 iron) tablet atorvastatin 10 mg tablet 10 mg PO DAILY 03/31/24 03/31/24 buspirone 5 mg tablet 5 mg PO Q8H 03/31/24 03/31/24 folic acid 1 mg tablet 2 mg PO DAILY 03/31/24 03/31/24 gabapentin 400 mg capsule 400 mg PO Q12H 03/31/24 03/31/24 lisinopril 40 mg tablet 40 mg PO DAILY 03/31/24 03/31/24 pantoprazole 40 mg tablet,delayed 40 mg PO Q12H 03/31/24 03/31/24 release primidone 50 mg tablet 150 mg PO Q12H 03/31/24 03/31/24 Allergies Allergy/AdvReac Type Severity Reaction Status Date / Time No Known Allergies Allergy Verified 03/31/24 11:43 Review of Systems Constitutional: Constitutional: Denies weakness ENT: Reports dizziness Cardiovascular: Cardiovascular: Reports chest pain, Denies syncope, Denies rapid heart rate, Denies irregular heart rhythm, Denies leg edema and Reports dyspnea Respiratory: Respiratory: Denies chest congestion, Denies hemoptysis, Denies excessive phlegm production and Reports dyspnea Gastrointestinal: Gastrointestinal: Denies abdominal pain, Denies hematochezia, Denies diarrhea and Denies vomiting Genitourinary: Genitourinary: Denies hematuria, Denies dysuria, Denies penile discharge and Denies testicular pain Musculoskeletal: Musculoskeletal: Reports back pain, Denies joint swelling, Denies loss of height and Denies muscle weakness Neurologic: Denies syncope, Reports headache(s), Denies focal weakness and Denies weakness PMFSH Past Medical History Medical History Anemia Arthritis Essential tremor HTN (hypertension) Hyperlipidemia Low back pain Lumbar stenosis with neurogenic claudication Obesity (BMI 30-39.9) Psychosis Surgical History Surgical History H/O hand surgery H/O knee surgery H/O shoulder surgery History of carpal tunnel release Family History Family History Mother Cerebrovascular accident Social History Social History Smoking status: Never smoker Alcohol intake: current Substance use: never Substance use type: does not use Lack of Transportation: No Lack of Food: Never True Current Housing: I Do Not Have Housing Concerned About Future Housing: No Difficulty Paying Gas/Electric Bills: No Difficulty Paying for Meds: No Currently Unemployed: No Education: High School Diploma/GED Difficulty w/ Childca
[2024-03-31 12:20] LABS: Alanine Aminotransferase 31 U/L (6-50); Albumin Level 4.5 g/dL (3.5-5.1); Alkaline Phosphatase 56 U/L (38-126); Anion Gap 5 mmol/L (4-12); Aspartate Amino Transferase 40 U/L (17-59); Bilirubin,Total 0.8 mg/dL (0.2-1.3); Blood Urea Nitrogen 16 mg/dL (9-20); Calcium 9.8 mg/dL (8.4-10.2); Carbon Dioxide 25 mmol/L (22-30); Chloride 103 mmol/L (98-107); Estimated CRCL calculation 124 ml/min; Estimated Glomerular Filt Rate > 60; Glucose 100 mg/dL (65-110); Lipase 50 U/L (23-300); Potassium 4.5 mmol/L (3.4-5.0); Sodium 133 mmol/L (137-145)
[2024-03-31 12:21] LABS: Prothrombin Time 13.8 Seconds (11.1-14.7)
[2024-03-31 12:22] LABS: Partial Thromboplastin Time 29.8 Seconds (22.3-36.8)
[2024-03-31 12:32] LABS: Troponin I < 0.012 ng/mL (0.000-0.034)
--- NOTE | 2024-03-31 12:41 | PC.NURSE ---
Pt taken to CT at this time
[2024-03-31] MEDS: hydrALAZINE HCL 20 MG/ML VIAL 10 MG IV PUSH (13:15)
[2024-03-31] MEDS: lisinopriL 20 MG TABLET 40 MG PO (14:51)
[2024-03-31] MEDS: amLODIPine BESYLATE 5 MG TABLET 10 MG PO (14:51)
--- NOTE | 2024-03-31 14:53 | ECG_ITS ---
SEE SCANNED COPY FOR CONFIRMED REPORT MTDD
--- NOTE | 2024-03-31 15:07 | PC.NURSE ---
Other ED RN mistakenly removed pt PIV. Thought pt was up for d/c, read wrong room. Pt educated on event and doctor's orders for blood work and admission. Another PIV placed.
--- NOTE | 2024-03-31 15:22 | PM.IMHP ---
H&P: HPI History of Present Illness Date/Time: 03/31/24 15:22 Chief Complaint: HTN, Chest Pain Narrative: 68 y/o M presents here with an elevated blood pressure and chest pain with PMH of anemia, arthritis, essential tremor, HTN, HLD, lumbar stenosis, and obesity. Patient presented here for further evaluation of chest pain and elevated blood pressure that have been ongoing for the past 4 months. Patient takes amlodipine 10 mg daily (increased from 5 mg daily on 03/04/24) and lisinopril 40 mg PO daily. 2 week recheck after amlodipine was increased was 160/90. Arrived today with BP of 178/73. Had hydralazine 50 mg BID added on 03/21/24. Patient reports ongoing chest discomfort and headaches for the last 3-4 months. Headaches described as frontal and bilateral. Described chest pain as midsternal, radiation into the axilla (had to have his clavicle bone removed due to infection so has chronic pain there), constant and no aggravated/alleviated factors. Dizziness started a few months ago as well, no alleviating/aggravating factors, no changes in vision, and no associated syncope. Patient drinks nightly (1-2 beers and 4 shots) before bed to ease his low back pain and help him go to sleep. Increase in ETOH use has occurred in the last year. No smoking or tobacco use history. Patient difficult historian, states he has a hard time describing some of his symptoms and onset. Initial VS at presentation: 97.2? F, HR 76, RR 16, 178/73, and 98% on RA ED workup showed: no leukocytosis, no anemia, sodium 133, creatinine 0.6 and GFR >60. CXR showed now acute cardiopulmonary disease. Head CT showed no acute intracranial abnormalities. Review of Systems Review of Systems: All systems reviewed & are unremarkable except as noted in HPI and below [facility] Past Medical History Medical History Anxiety and depression Arthritis Erectile dysfunction Essential tremor Gastric ulcer HTN (hypertension) Hyperlipidemia GLEN (iron deficiency anemia) Low back pain Lumbar stenosis with neurogenic claudication Obesity (BMI 30-39.9) Psychosis Surgical History Surgical History H/O hand surgery H/O knee surgery bilateral H/O shoulder surgery bilateral, total replacement History of carpal tunnel release History of thoracic surgery (2019) clavicle removal on left secondary to osteomyelitis History of tonsillectomy Family History Family History Mother Cerebrovascular accident Social History Social History Smoking status: Never smoker Alcohol intake: current Drinks per week: 7 Substance use: never Substance use type: does not use Last use: 03/29/2024 Do You Feel Safe in your Home?: Yes Lack of Transportation: No Lack of Food: Never True Current Housing: I Have Housing Concerned About Future Housing: No Difficulty Paying Gas/Electric Bills: No Difficulty Paying for Meds: No Currently Unemployed: No Education: Trade/Vocational Certificate Difficulty w/ Childcare or Family Care: No Living arrangements: with family Spiritual care concerns: No Meds Home Medications and Allergies Home Medications Medication Instructions Recorded Confirmed Type adalimumab 40 mg/0.8 mL 40 mg subcut WEEKLY 02/25/23 03/31/24 History subcutaneous syringe kit (Humira) acetaminophen 650 mg 650 mg PO Q12H 06/05/23 03/31/24 History tablet,extended release (Tylenol Arthritis Pain) glucosamine sulf dipot 1 cap PO DAILY 06/05/23 03/31/24 History chlr,msm,chond 550 mg-C 30 mg-jose m 1 mg capsule (Glucosamine Chondroitin) ferrous sulfate 325 mg (65 mg 325 mg PO EVERY OTHER DAY 07/30/23 03/31/24 History iron) tablet citalopram 40 mg tablet 40 mg PO DAILY #90 tabs 01/18/24 03/31/24 Rx albuterol sulfate 90 m
[2024-03-31] MEDS: hydrALAZINE HCL 50 MG TABLET PO ×2 (15:24→20:27)
[2024-03-31 15:30] LABS: Troponin I < 0.012 ng/mL (0.000-0.034)
--- NOTE | 2024-03-31 16:01 | ADMGEN ---
This patient, Sarath Pineda, was admitted to IMU Room 201-01. Patient/family oriented to hospital policies and general routines including ID bracelet, bed and alarms, visiting hours, pain management, procedures, bathroom and other care routines, personal items, smoking policy, room service/diet, and visiting hours. Information on how to activate the Rapid Response Team has been discussed. Patient/Family are encouraged to report perceived risks to care and to ask questions if they do not understand what they are told or what they should do.
--- NOTE | 2024-03-31 17:00 | PC.NURSE ---
Patient noted to be eating hamburger meal from [employer] with 2 large soft drinks at bedside. Patient and family educated on heart healthy diet and impact of sodium on blood pressure. Patient verbalizes understanding.
--- NOTE | 2024-03-31 17:18 | PC.NURSE ---
Upon going through patient's medication list, patient admitted to taking tylenol arthritis from home. Patient notified of hospital med policy and potential of overdose. Patient verbalizes understanding and states will no longer take meds not administered by nursing staff.
[2024-03-31] MEDS: FUROSEMIDE INJ 40 MG/4 ML VIAL 20 MG IV PUSH (18:29)
--- NOTE | 2024-03-31 18:33 | PC.NURSE ---
Addendum entered by Ibis Mason RN 03/31/24 18:37: Patient educated on lasix and probable urinary frequency following dose. Patient encouraged to void per urinal for safety reasons and for accurate I and O. Refuses to call for help to void and refuses to use urinal in bed. He insists on voiding in the toilet. Encouraged to use urinal even if in the restroom for accuracy. Patient states he will void per urinal in the restroom, independently. He is alert and oriented x4. Original Note: Patient educated on lasix and propable urinary frequency following dose. Patient encouraged to void per urinal for safety reasons and for accurate I and O. Refuses to call for help to void and refuses to use urinal in bed. He insists on voiding in the toilet. Encouraged to use urinal even if in the restroom for accuracy. Patient states he will void per urinal in the restroom, independently. He is alert and oriented x4.
--- NOTE | 2024-03-31 18:44 | PC.NURSE ---
Flor, hospitalist, notified patient taking home NSAIDS. Okayed giving IV toradol.
[2024-03-31 18:46] LABS: Troponin I < 0.012 ng/mL (0.000-0.034)
[2024-03-31] MEDS: KETOROLAC 30 MG/ML VIAL (*BKC) IV PUSH (18:49)
[2024-03-31] MEDS: NITROGLYCERIN SL 0.4 MG TABLET SUBLINGUAL (20:24)
[2024-03-31] MEDS: GABAPENTIN 400 MG CAPSULE PO (20:26)
[2024-03-31] MEDS: PRIMIDONE 50 MG TABLET 150 MG PO (20:26)
[2024-03-31] MEDS: PANTOPRAZOLE 40 MG TABLET PO (20:27)
[2024-03-31] MEDS: busPIRone HCL 5 MG TABLET PO (20:27)
[2024-03-31] MEDS: FLUTICASONE/SALMETEROL 115-21 MCG INHALER 1 PUFF 2 PUFF INHALATION (20:40)
[2024-04-01] VITALS (14 sets, daily range): BP systolic 145–177; BP diastolic 53–74; PULSE 68–77; RESP 16–20; TEMP 36.2–36.3; O2SAT 95–97
[2024-04-01] MEDS: ACETAMINOPHEN 325 MG TABLET 650 MG PO ×2 (00:45→15:26)
[2024-04-01 04:23] LABS: Basophils Percent Auto 0.5 % (0.2-1.2); Eosinophils Absolute Auto 0.2 K/mm3 (0-0.3); Hematocrit 40.5 % (42.0-52.0); Hemoglobin 13.6 g/dL (14.0-18.0); Immature Granulocyte Absolute 0.01 K/mm3 (0.00-0.031); Immature Granulocyte Percent A 0.1 % (0-0.5); Lymphocytes Absolute Auto 3.68 K/mm3 (0.9-3.2); Lymphocytes Percent Auto 49.9 % (18.3-44.2); Mean Corpuscular HGB Conc 33.6 g/dl (32-36); Mean Corpuscular Volume 92.3 fl (80-100); Monocytes Absolute Auto 0.9 K/mm3 (0.1-0.6); Monocytes Percent Auto 12.6 % (2.6-8.5); Neutrophils Absolute Auto 2.5 K/mm3 (1.3-6.7); Neutrophils Percent Auto 33.9 % (45.5-73.1); Platelet Count Result 255 k/mm3 (150-375); Red Blood Count 4.39 M/mm3 (4.6-6.20); White Blood Count 7.4 K/mm3 (4.5-10.0)
[2024-04-01 04:37] LABS: Alanine Aminotransferase 27 U/L (6-50); Albumin Level 3.9 g/dL (3.5-5.1); Alkaline Phosphatase 47 U/L (38-126); Anion Gap 6 mmol/L (4-12); Aspartate Amino Transferase 30 U/L (17-59); Bilirubin,Total 0.4 mg/dL (0.2-1.3); Blood Urea Nitrogen 21 mg/dL (9-20); Calcium 9.7 mg/dL (8.4-10.2); Carbon Dioxide 26 mmol/L (22-30); Chloride 101 mmol/L (98-107); Estimated CRCL calculation 97 ml/min; Estimated Glomerular Filt Rate > 60; Glucose 106 mg/dL (65-110); Potassium 4.1 mmol/L (3.4-5.0); Sodium 133 mmol/L (137-145)
[2024-04-01 04:42] LABS: NT Pro B Type Natriuretic Pept 182 pg/mL (19.9-100)
[2024-04-01] MEDS: busPIRone HCL 5 MG TABLET PO ×2 (05:30→13:26)
--- NOTE | 2024-04-01 07:03 | PM.IMPN ---
Progress Note: A&P Assessment and Plan (1) Chest pain: Code(s): R07.9 - Chest pain, unspecified Status: Acute Assessment and Plan: - EKG, initial: Left bundle-branch block not seen on prior EKGs, sinus rhythm, rate 70. - CXR: No acute cardiopulmonary disease - Troponin: <0.012 x2 - ASA 324 mg given - SL nitro PRN - cardiology recommendations: chest pain not very suggestive of TX or ACS as it has been present for 6-8 months and troponins negative due to EKG with new LBBB on EKG a Lexiscan nuclear stress test was ordered to determine if significant ischemic heart disease is present further recommendations will be made based on findings - telemetry monitoring - DDx: CAD/TX, hypertensive urgency, costochondritis (2) HTN (hypertension): Code(s): I10 - Essential (primary) hypertension Status: Acute Assessment and Plan: - chronic, 190/60 on admission. 148/69 this am. - continue home medications: amlodipine 10 mg daily, lisinopril 40 mg daily, and hydralazine 50 mg BID - received a 1x lasix IVP with some improvement - apnea link ordered, had a sleep study done numerous years ago which was negative for ARIANE - cardiology consulted, suspected hypertensive urgency. No recommended changes in medications at this time. - monitor (3) Dizziness: Code(s): R42 - Dizziness and giddiness Status: Acute Assessment and Plan: - Head CT 1. No acute intracranial abnormality. - suspect dizziness secondary to hypertensive urgency - no deficits on exam Plan Diet: heart healthy GI Prophylaxis: not indicated DVT Prophylaxis: SCDs Lines: peripheral Code Status: full code Subjective Date/time seen: 04/01/24 07:03 Interval history: 68 y/o M presents here with an elevated blood pressure and chest pain with PMH of anemia, arthritis, essential tremor, HTN, HLD, lumbar stenosis, and obesity. Review of Systems Review of Systems: All systems reviewed & are unremarkable except as noted in HPI and below Exam Narrative: AF General: well nourished, well-developed male in no acute respiratory distress who is nontoxic appearing, lying semi recumbent in bed. HEENT: Normocephalic. Atraumatic. Pupils equal round reactive to light. Extraocular movement intact. Sclera clear and anicteric. Nares patent. No oral lesions. Moist mucous membranes. Tongue is midline. Palate gaby symmetrically. No facial asymmetry. Neck: Neck was supple. No dominant adenopathy, thyromegaly or masses. 2+ carotid upstrokes without bruits. Chest: Lungs are clear to auscultation bilaterlly. No wheezes or crackles. CV: Heart was regular rate and rhythm. S1/S2. No murmurs, gallops, or rubs. Abd: Abdomen was soft. Nontender. Nondistended. Postive bowel sounds. No organomegaly or masses. Ext: No clubbing, cyanosis, or edema. 2+ DP pulses bilaterally. Neuro: Patient is alert and oriented x4. Strenth is 5/5 in both upper and lower extremities. Cranial nerves 2-12 are intact. Speech is clear. Psych: Normal nood and affect. Patient is pleasant and cooperative. Skin: Warm and dry. No rashes noted. Objective Data Vital Signs Vital Signs: Vital Signs - 24 hr 03/31/24 11:46 03/31/24 12:03 03/31/24 12:07 Temperature 97.2 F L Pulse Rate 76 71 Respiratory Rate 16 15 Blood Pressure 178/73 H 185/77 H Pulse Oximetry 98 98 99 Oxygen Delivery Room Air Room Air 03/31/24 12:57 03/31/24 12:59 03/31/24 13:01 Temperature Pulse Rate 70 69 69 Respiratory Rate 14 16 14 Blood Pressure 177/66 H 165/77 H 188/92 H Pulse Oximetry 98 97 99 Oxygen Delivery 03/31/24 13:13 03/31/24 13:35 03/31/24 14:04 Temperature Pulse Rate 69 72 73 Respiratory Rate 14 14 14 Blood Pressure 188/78 H 168/69 H 165/68 H Pulse Oximetry 97 98 98 Oxygen Delivery 03/31/24 14:31 03/31/24 15:06 03/31/24 16:00 Temperature Pulse Rate 76 71 76 Respiratory Rate 16 12 Blood Pressure 182/81 H 199/79 H Pulse Oximetry 97 99
[2024-04-01] MEDS: amLODIPine BESYLATE 5 MG TABLET 10 MG PO (08:09)
[2024-04-01] MEDS: PRIMIDONE 50 MG TABLET 150 MG PO (08:09)
[2024-04-01] MEDS: lisinopriL 20 MG TABLET 40 MG PO (08:09)
[2024-04-01] MEDS: CITALOPRAM HYDROBROMIDE 20 MG TABLET 40 MG PO (08:10)
[2024-04-01] MEDS: hydrALAZINE HCL 50 MG TABLET PO (08:10)
[2024-04-01] MEDS: ATORVASTATIN 10 MG TABLET PO (08:10)
[2024-04-01] MEDS: FERROUS SULFATE 325 MG TABLET DR PO (08:10)
[2024-04-01] MEDS: GABAPENTIN 400 MG CAPSULE PO (08:10)
[2024-04-01] MEDS: PANTOPRAZOLE 40 MG TABLET PO (08:10)
[2024-04-01] MEDS: FOLIC ACID 1 MG TABLET 2 MG PO (08:10)
[2024-04-01] MEDS: FLUTICASONE/SALMETEROL 115-21 MCG INHALER 1 PUFF 2 PUFF INHALATION (08:19)
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
[2024-04-01] MEDS: NIFEdipine 30 MG TAB.ER.24 90 MG PO (13:26)
--- NOTE | 2024-04-01 14:36 | PM.DS ---
DS: Admitting Diagnosis Discharge Date 04/01/24 Admitting Diagnosis Chest pain Left bundle branch block Hypertension Dizziness DS: Discharge Diagnosis Discharge Diagnosis (1) Chest pain: Code(s): R07.9 - Chest pain, unspecified Status: Acute (2) Left bundle branch block: Code(s): I44.7 - Left bundle-branch block, unspecified Status: Acute (3) HTN (hypertension): Code(s): I10 - Essential (primary) hypertension Status: Acute (4) Dizziness: Code(s): R42 - Dizziness and giddiness Status: Acute DS: Summary Hospital Course Reason for hospitalization: Chest pain Left bundle branch block Hypertension Dizziness Hospital Course: 68 year old male with past medical history of anemia, arthritis, essential tremor, HTN, HLD, lumbar stenosis, and obesity who presented to the hospital with an elevated blood pressure and chest pain that had been going on for 4 months. Patient previously taking amlodipine 10 mg daily (increased from 5 mg daily on 03/04/24), lisinopril 40 mg PO daily, and hydralazine 50 mg BID (added on 03/21/24). Patient reports strict compliance of his blood pressure medications. His EKG shows sinus rhythm with a left bundle branch block.? Previous EKG in the record do not show a left bundle branch block. Troponin levels were unremarkable. Patient evaluated by cardiology who state there is no evidence of acute DE or ACS at this time. Plan was to obtain a lexican nuclear stress test during the admission to determine significant ischemic heart disease, but patient was not NPO today. Per cardiology it is not necessary for patient to remain inpatient for a stress test to be performed on Thursday. He will be discharged with plan to have stress test in office outpatient. Spoke with cardiology Dr. Blankenship about patients current antihypertensive regimen and he recommends discontinuing the amlodipine and starting patient on nifedipine XL 90 mg daily. Spoke with pharmacy about this medication in regards to the contraindication with primidone and they state this is okay to continue. Patient discharged home with family in a stable condition. He will follow up with cardiology as scheduled and his primary care provider in 1 week. Status at Discharge Functional status at discharge: independent ambulation Time Spent with Patient Time attestation: Total time spent providing and/or coordinating discharge services: Time spent: Greater than 30 minutes Exam Narrative: General: male in no acute respiratory distress who is nontoxic appearing, sitting up in bed HEENT: Normocephalic. Atraumatic. Pupils equal round reactive to light. Extraocular movement intact. Sclera clear and anicteric.No facial asymmetry. Chest: Lungs are clear to auscultation bilaterally. No wheezes or crackles. CV: Heart was regular rate and rhythm. S1/S2. No murmurs, gallops, or rubs. Abd: Abdomen was soft. Nontender. Nondistended. Positive bowel sounds. No organomegaly or masses. Ext: No clubbing, cyanosis, or edema. 2+ DP pulses bilaterally. Neuro: Patient is alert and oriented x4. Speech is clear. Psych: Normal mood and affect. Patient is pleasant and cooperative. Skin: Warm and dry. No rashes noted. DS: Data Data Completed and Pending Completed studies during hospitalization: Head CT Chest XR Labs on day of discharge: Labs from last 24 hours 04/01/24 03/31/24 03/31/24 03:20 17:55 15:04 WBC 7.4 RBC 4.39 L Hgb 13.6 L Hct 40.5 L MCV 92.3 MCH 31.0 MCHC 33.6 RDW 13.0 Plt Count 255 MPV 9.0 Immature Gran % (Auto) 0.1 Neut % (Auto) 33.9 L Lymph % (Auto) 49.9 H [place] % (Auto) 12.6 H Eos % (Auto) 3.0 Baso % (Auto) 0.5 Lymph # (Auto) 3.68 H [place] # (Auto) 0.9 H Eos # (Auto) 0.2 Baso # (Auto) 0.0 Abs Immat Gran (auto) 0.01 Absolute Neuts (auto) 2.5 Absolute Nucleated RBC 0.000 Nucleated RBC % 0.0 Sodium 133 L Potassium 4.1 Chlor
== END 2024-04-01 16:01 | disposition home or self-care (01) ==
LOC: ANHED 12:53 → ANHIMU 15:44
PROVIDERS: Emergency Medicine; Student in an Organized Health Care Education/Training Program; Admitting Provider General Practice; Emergency Provider General Practice; PCP Physician Assistant; Visit Provider General Practice
DX: R07.9 Chest pain, unspecified (principal); I16.0 Hypertensive urgency; I44.7 Left bundle-branch block, unspecified; I10 Essential (primary) hypertension; R42 Dizziness and giddiness; D64.9 Anemia, unspecified; F41.8 Other specified anxiety disorders; D50.9 Iron deficiency anemia, unspecified; E78.5 Hyperlipidemia, unspecified; G25.0 Essential tremor; E66.9 Obesity, unspecified; Z68.35 Body mass index [BMI] 35.0-35.9, adult; Z79.620 Long term (current) use of immunosuppressive biologic
CPT/HCPCS: 36415; 70450; 71046; 80053; 83690; 83880; 84443; 84484; 85025; 85380; 85610; 85730; 93005; 94640; 94762; 96374; 96375; 99285; A9270; G0378; J0360; J1885; J1940

== ENCOUNTER 2024-08-03 13:43 | Outpatient (CLI) | payer MEDICARE, SELFPAY ==
--- NOTE | ~2024-08-03 | US_ITS ---
EXAMINATION: US renal BI DATE: 08/03/2024 14:47 INDICATION: Resistant hypertension. TECHNIQUE: Multiple ultrasound grayscale images of the kidneys were obtained. COMPARISON: CT 05/05/2012 FINDINGS: The right kidney measures 12.6 x 4.9 x 5.5 cm. The left kidney measures 12.1 x 7.0 x 5.3 cm. The kidn eys demonstrate normal parenchymal echogenicity. There is a 2.2 cm hyperechoic mass in left kidney. T here is no hydronephrosis. The bladder is normal. IMPRESSION: 1. 2.2 cm hyperechoic left kidney mass. The differential diagnosis includes angiomyolipoma and renal cell carcinoma. Abdomen CT or MRI without and with contrast is recommended. Reviewed, dictated and finalized at location A. IMPRESSION: 1. 2.2 cm hyperechoic left kidney mass. The differential diagnosis includes an giomyolipoma and renal cell carcinoma. Abdomen CT or MRI without and with contr ast is recommended.
== END 2024-08-03 13:44 | disposition home or self-care (01) ==
PROVIDERS: PCP Physician Assistant; Visit Provider Internal Medicine
DX: I1A.0 Resistant hypertension (principal)
CPT/HCPCS: 76775

== ENCOUNTER 2024-08-06 09:42 | Outpatient (CLI) | payer MEDICARE, SELFPAY ==
--- NOTE | ~2024-08-06 | CT_ITS ---
EXAMINATION: CT abdomen wo/w con DATE: 08/06/2024 11:01 INDICATION: Other specified disorders of kidney and ureter. Left kidney mass. TECHNIQUE: Computed tomography (CT) of the abdomen was performed without and with 100 mL Omnipaque 35 0 intravenous contrast. Automated exposure control and iterative reconstruction technique were employ ed. The dose-length product was 1865.86 mGy-cm. COMPARISON: Ultrasound 08/03/2024 FINDINGS: The visualized portions of the lung bases demonstrate mild atelectasis. No pleural effusion . The heart size is normal. There are coronary artery calcifications. No pericardial effusion. There is a small sliding hiatal hernia. There are cysts in the liver measuring up to 3.8 cm. The spleen and pancreas are normal. There are low-attenuation masses in the adrenal glands measuring up to 11 mm on the left, consistent with adenomas. There are 3 stones in right kidney measuring up to 6 mm. There i s a 2 mm stone in left kidney. There is a 1.5 cm mass in left kidney that is indeterminate for contra st enhancement. There is a 5 mm cyst in left kidney. There is a 3.0 cm enhancing mass in left kidney. There are no dilated loops of bowel. There is diverticulosis of the colon without evidence of divert iculitis. There are no pathologically enlarged lymph nodes. There is no free intraperitoneal fluid. T here is severe lumbar spondylosis. There is a chronic compression fracture of T12. IMPRESSION: 1. 3.0 cm enhancing mass in left kidney, consistent with renal cell carcinoma. 2. 1.5 cm mass in left kidney that is indeterminate for contrast enhancement, which may be a hemorrha gic cyst or renal cell carcinoma. Reviewed, dictated and finalized at location A. IMPRESSION: 1. 3.0 cm enhancing mass in left kidney, consistent with renal cell carcinoma. 2. 1.5 cm mass in left kidney that is indeterminate for contrast enhancement, w hich may be a hemorrhagic cyst or renal cell carcinoma.
[2024-08-06 10:56] LABS: Estimated Glomerular Filt Rate > 60
== END 2024-08-06 09:43 | disposition home or self-care (01) ==
PROVIDERS: PCP Physician Assistant; Visit Provider Internal Medicine
DX: N28.89 Other specified disorders of kidney and ureter (principal)
CPT/HCPCS: 74170; Q9967

== ENCOUNTER 2024-09-05 11:06 | Outpatient (CLI) | payer MEDICARE, SELFPAY ==
[2024-09-05 11:29] LABS: Basophils Percent Auto 0.4 % (0.2-1.2); Eosinophils Absolute Auto 0.1 K/mm3 (0-0.3); Eosinophils Percent Auto 1.9 % (0-4.4); Hematocrit 37.1 % (42.0-52.0); Immature Granulocyte Absolute 0.01 K/mm3 (0.00-0.031); Immature Granulocyte Percent A 0.2 % (0-0.5); Lymphocytes Percent Auto 43.9 % (18.3-44.2); Mean Corpuscular Hemoglobin 30.7 pg (26-34); Mean Corpuscular Volume 87.5 fl (80-100); Mean Platelet Volume 8.7 fl (7.4-10.4); Monocytes Absolute Auto 0.5 K/mm3 (0.1-0.6); Monocytes Percent Auto 10.3 % (2.6-8.5); Neutrophils Absolute Auto 2.3 K/mm3 (1.3-6.7); Neutrophils Percent Auto 43.3 % (45.5-73.1); Platelet Count Result 240 k/mm3 (150-375); Red Blood Count 4.24 M/mm3 (4.6-6.20); Red Cell Distribution Width 12.9 % (11.5-14.5); White Blood Count 5.2 K/mm3 (4.5-10.0)
[2024-09-05 11:42] LABS: Alanine Aminotransferase 21 U/L (6-50); Albumin Level 4.1 g/dL (3.5-5.1); Alkaline Phosphatase 50 U/L (38-126); Anion Gap 8 mmol/L (4-12); Aspartate Amino Transferase 29 U/L (17-59); Bilirubin,Total 0.3 mg/dL (0.2-1.3); Blood Urea Nitrogen 22 mg/dL (9-20); Calcium 9.9 mg/dL (8.4-10.2); Carbon Dioxide 27 mmol/L (22-30); Chloride 96 mmol/L (98-107); Estimated Glomerular Filt Rate > 60; Glucose 106 mg/dL (65-110); Potassium 4.6 mmol/L (3.4-5.0); Sodium 131 mmol/L (137-145)
== END 2024-09-05 11:07 | disposition home or self-care (01) ==
PROVIDERS: PCP Internal Medicine; Visit Provider Internal Medicine
DX: D64.9 Anemia, unspecified (principal); L03.116 Cellulitis of left lower limb; I1A.0 Resistant hypertension; R53.83 Other fatigue
CPT/HCPCS: 36415; 80053; 85025

== ENCOUNTER 2025-02-09 11:55 | Outpatient (CLI) | payer OTHER, SELFPAY ==
[2025-02-09 12:17] LABS: Add Urine Microscopic? NO; Appearance Urine Clear (Clear); Bilirubin Urine Negative (Negative); Blood Urine Negative (Negative); Color Urine Yellow (Yellow); Glucose Urine UA Negative (Negative); Ketones Urine Negative (Negative); Leukocyte Esterase Ur Negative LEU/UL (Negative); Nitrate Urine Negative (Negative); Protein Urine Negative (Negative); Urobilinogen Urine 0.2 mg/dL (<2.0); pH Urine 6.5 (5.0-9.0)
--- OUTSIDE RECORDS SUMMARY | 2025-02-09 13:39 | XMS_ITS | Referral Summary ---
Author Organization [facility] [address] Address [address] [place] [address] Care Team Providers Care Physician Chief Of Pathology Name Role Phone Jakub Jimenez Primary Care Provider Nicholas Chand MD Unavailable [phone] Allergies No known active allergies Medications NIFEdipine (NIFEdipine CC) 90 mg 24 hr tablet Take 1 tablet (90 mg total) by mouth daily 16 tablet 04/05/2024 04/05/20 25 Active albuterol HFA (PROVENTIL HFA,VENTOLIN HFA,PROAIR HFA) 90 mcg/actuation inhaler Inhale 2 puffs every 4 (four) hours as needed 02/04/2024 Active atorvastatin (LIPITOR) 10 mg tablet Take 1 tablet (10 mg total) by mouth daily 04/20/2023 Active busPIRone (BUSPAR) 5 mg tablet Take 1 tablet (5 mg total) by mouth 3 (three) times a day 03/16/2023 Active polycarbophil (FIBERCON) 625 mg tablet Take 1 tablet (625 mg total) by mouth 2 (two) times a day Active citalopram (CeleXA) 40 mg tablet Take 1 tablet (40 mg total) by mouth daily 02/12/2023 Active folic acid (FOLVITE) 1 mg tablet Take 1 tablet (1 mg total) by mouth daily 03/31/2023 Active gabapentin (NEURONTIN) 400 mg capsule Take 1 capsule (400 mg total) by mouth 2 (two) times a day 03/23/2023 Active lisinopriL (PRINIVIL,ZESTR IL) 40 mg tablet Take 1 tablet (40 mg total) by mouth every morning 01/12/[address] (PROTONIX) 40 mg EC tablet Take 1 tablet (40 mg total) by mouth daily Active primidone (MYSOLINE) 50 mg tablet Take 4 tablets (200 mg total) by mouth 2 (two) times a day 03/31/2023 Active terazosin (HYTRIN) 10 mg capsule Take 1 capsule (10 mg total) by mouth daily Active zaleplon (SONATA) 10 mg capsule Take 1 capsule (10 mg total) by mouth daily Active chlorthalidone (HYGROTON) 25 mg tablet Take 1 tablet (25 mg total) by mouth daily Active traMADoL (ULTRAM) 50 mg tablet Take 1 tablet (50 mg total) by mouth every 8 (eight) hours as needed Active hydrALAZINE (APRESOLINE) 100 mg tablet Take 1 tablet (100 mg total) by mouth 2 (two) times a day 08/09/2024 Active multivitamin tabletIndicatio ns:Vitamin Deficiency Prevention Take 1 tablet by mouth every morning Active omega-3 fatty acids-fish oil 300-1,000 mg capsule Take 1 capsule (1 g total) by mouth every morning Active naproxen (ANAPROX DS) 550 mg tablet Take 1 tablet (550 mg total) by mouth 2 (two) times a day with meals Active acetaminophen 500 mg capsuleIndicati ons:Pain Take 2 capsules (1,000 mg total) by mouth every 6 (six) hours 09/28/2024 Active Active Problems Problem Noted Date Diagnosed Date Renal mass 09/06/2024 LBBB (left bundle branch block) 04/21/2024 Closed fracture of calcaneus 09/24/2015 Encounter for long-term (current) use of antibio tics 08/27/2015 Infection due to Staphylococcus epidermidis 08/01 Osteomyelitis 08/09/2015 Clavicle pain 07/16/2015 Arthralgia of shoulder 08/20/2011 Sprain of elbow 09/10/2010 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 Immunizations Immunization Administration Dates Next Due Influenza, Trivalent, High D ose, Split, Preservative Free, Intramuscular 09/28/2024 Social History Tobacco Use Types Packs/Day Years Used Date Smoking Tobacco: Never AUDIT-C Answer Date Recorded Q1: How often do you have a drink containing alcohol? Never 09/16/2024 Q2: How many drinks containi ng alcohol do you have on a typical day when you are drinking? Patient does not drink Q3: How often do you have si x or more drinks on one occasion? Never 09/16/2024 Personal Safety Answer Date Recorded Have you ever been in or are you currently in a harmful physical or emotional relationship or is someone making you feel afraid or unsafe? 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 Gender Identity Not on file Sexual Orientation Not on file Last Filed Vital Signs Vital Sign Reading Time Taken Comments Blood Pressure 163/64 09/28/2024 4:36 AM CDT Pulse 82 09/28/2024 4:36 AM CDT Temperature 36.9 C (98.5 F) 09/28/2024 4:36 AM CDT Respiratory Rate 18 09/28/2024 4:36 AM CDT Oxygen Saturation 99% 09/28/2024 4:36 AM CDT Inhaled Oxygen Concentration - - Weight 111.9 kg (246 lb 11.1 oz) 09/26/2024 6:33 AM CDT Height 180.3 cm (5' 11 ) 09/26/2024 6:33 AM CDT Body Mass Index 34.41 09/26/2024 6:33 AM CDT Plan of Treatment Not on file Insurance [facility] [place] [facility] MEDICARE HMO Advance Directives For more information, please contact: [phone] * Full Code (Latest Code Status on File) Date Activated Date Inactivated Comments 09/26/2024 2:58 PM 09/28/2024 4:42 PM Care Teams Physician Chief Of Pathology Relationship Specialty Start Date End Date Jakub Jimenez PA [address] [facility] [address] [place], [place] [id number] PCP - General Physician Retail Tire Sales Manager 04/04/24 [place] [id number] [place] [id number] Consulting Physician Urology 09/28/24
--- OUTSIDE RECORDS SUMMARY | 2025-02-09 13:39 | XMS_ITS | CONTINUITY OF CARE DOCUMENT ---
Author Name juan francisco chicas Address Unknown Organization [facility] Address [address] [place] [address] Phone [phone] Care Team Providers Care Administrative Job Titles Name Role Phone Miranda DOYLE, Sang Unavailable STEFFANIE LANGE MD Unavailable INSURANCE PROVIDERS Payer name Policy type / Coverage type [place] [employer] [place] [facility] Commercial insurance [facility] [id number]
--- OUTSIDE RECORDS SUMMARY | 2025-02-09 13:39 | XMS_ITS | Clinical Summary ---
Author Organization [facility] [address] Address [address] [place] [address] Care Team Providers Care Senior Electrical Designer Name Role Phone Jakub Jimenez Primary Care Provider Nicholas Chand MD Unavailable Allergies No known active allergies Medications NIFEdipine [...] D ose, Split, Preservative Free, Intramuscular 09/28/2024 Surgical History Surgery Date Site/Laterality Comments KNEE ARTHROPLASTY Bilateral SHOULDER ARTHROPLASTY Bilateral CARPAL TUNNEL RELEASE Bilateral SHOULDER SURGERY Left clavicle repair BACK SURGERY Medical History Medical History Date Comments Hypertension PONV (postoperative nausea and vomiting) Vertigo COPD (chronic obstructive pulmonary disease) (HC C) GERD (gastroesophageal reflux disease) Family History Medical History Relation Name Comments Cancer Father Family history of malignant neoplasm - (Added by TW Conv) Arthritis Mother Family history of arthritis - (Added by TW Conv) Stroke Mother Family history of cerebrovascular accident - (Added by TW Conv) Relation Name Status Comments Father Mother Social History Tobacco Use Types Packs/Day Years [...] on file 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 Gender Identity Not on file Sexual Orientation Not on file Obstetrics History Last Filed Vital Signs Vital Sign Reading [...] 09/26/2024 6:33 AM CDT Plan of Treatment Health Maintenance Due Date Last Done Comments Colon Cancer Screening-Colonoscopy 1955 Depression Screening 1955 Hepatitis C Screening 1955 Hepatitis B Screening 1971 Zoster Vaccine (1 of 2) 2003 Well Visit 65+ 2018 Pneumococcal vaccine 65+ (2 of 2 - PPSV23) 09/19/2020 09/19/2019 Covid-19 Vaccine (4 - 2023-2 5 season) 2024 12/17/2021, 03/25/2021, 03/04/2021 Fall Risk Assessment 09/28/2025 09/28/2024 DTaP/Tdap/Td Vaccine (2 - Td or Tdap) 11/10/2027 11/10/2017 Influenza Vaccine Completed 09/28/2024, , 09/18/2020, Additional history exists Insurance [facility] MEDICARE HMO Advance Directives For more information, please contact: [phone] * Full Code (Latest Code Status on File) Date Activated Date Inactivated Comments 09/26/2024 2:58 PM 09/28/2024 4:42 PM Care Teams Senior Electrical Designer Relationship Specialty Start Date End Date Jakub Jimenez PA [address] [facility] [address] [place] [address] PCP - General Physician Networker 04/04/24 [place] [address] [place] [address] Consulting Physician Urology 09/28/24
--- OUTSIDE RECORDS SUMMARY | 2025-02-09 13:39 | XMS_ITS | Clinical Summary ---
Author Organization [facility] Address [facility] [place] [address] Care Team Providers Care Disability Examiner Name Role Phone Jakub Jimenez PA-C Primary Care Provider [phone] Allergies No known active allergies Medications amLODIPine (NORVASC) 5 MG tablet Take 1 tablet (5 mg total) by mouth daily. 02/16/2023 Active gabapentin (NEURONTIN) 400 MG capsule Take 1 capsule (400 mg total) by mouth 2 (two) times a day. 03/23/2023 Active folic acid (FOLVITE) 1 MG tablet Take 1 tablet (1 mg total) by mouth daily. 03/31/2023 Active lisinopril (PRINIVIL) 40 MG tablet Take 1 tablet (40 mg total) by mouth daily. 01/12/2023 Active methotrexate (TREXALL) 2.5 MG tablet Take 1 tablet by mouth 3 (three) times a week. Hasn't used since 04/21/23 02/25/2023 Active atorvastatin (LIPITOR) 10 MG tablet Take 1 tablet (10 mg total) by mouth daily. 04/20/2023 Active busPIRone (BUSPAR) 5 MG tablet Take 1 tablet (5 mg total) by mouth 3 (three) times daily. 03/16/2023 Active citalopram (CELEXA) 40 MG tablet Take 1 tablet (40 mg total) by mouth daily. 02/12/2023 Active fluticasone-paul meterol (ADVAIR DISKUS) 250-50 MCG/ACT inhaler Inhale 1 puff into the lungs 2 (two) times daily. 03/31/2023 Active primidone (MYSOLINE) 50 MG tablet Take 1 tablet (50 mg total) by mouth daily. 03/31/2023 Active pantoprazole EC (PROTONIX) 40 MG tablet Take 1 tablet (40 mg total) by mouth daily. Active adalimumab (HUMIRA) 40 MG/0.8ML injection Inject 0.8 mLs (40 mg total) into the skin once a week. Been off since 04/22/23 Active polycarbophil (FIBER) 625 MG tablet Take 1 tablet (625 mg total) by mouth daily. Active Glucosamine Sulfate 1000 MG Cap Take 1 tablet by mouth daily. Active fish oil (OMEGA-3 FATTY ACID) 1000 MG Cap capsule Take 1 capsule (1,000 mg total) by mouth 2 (two) times daily. Active traMADol (ULTRAM) 50 MG tablet Take 1 tablet (50 mg total) by mouth every 6 (six) hours as needed. 05/14/2023 Active Acetaminophen (TYLENOL ARTHRITIS PAIN OR) Take 1,250 mg by mouth. Active Active Problems No known active problems Family History Medical History Relation Comments Alzheimer's disease Father Emphysema Father Arthritis Mother psoriatic arthri tis Relation Status Comments Father Mother Social History Tobacco Use Types Packs/Day Years Used Date Smoking Tobacco: Never Smokeless Tobacco: Never Alcohol Use Standard Drinks/Week Comments Yes 0 (1 standard drink = 0.6 oz pur e alcohol) 2-3 beers nightly before bed Sex and Gender Information Value Date Recorded Sex Assigned at Not on file Legal Sex Male 8:52 AM CDT Gender Identity Not on file Sexual Orientation Not on file Last Filed Vital Signs Vital Sign Reading Time Taken Comments Blood Pressure 167/76 05/26/2023 9:49 AM CDT Pulse 70 05/26/2023 9:49 AM CDT Temperature 36.8 C (98.3 F) 05/26/2023 9:49 AM CDT Respiratory Rate 16 05/26/2023 9:49 AM CDT Oxygen Saturation 97% 05/26/2023 9:49 AM CDT Inhaled Oxygen Concentration - - Weight 120.1 kg (264 lb 12.4 oz) 05/26/2023 9:49 AM CDT Height 179.1 cm (5' 10.5 ) 04/29/2023 1:00 PM CD T Body Mass Index 37.45 04/29/2023 1:00 PM CDT Plan of Treatment Health Maintenance Due Date Last Done Comments Colorectal Cancer Screening Colonoscopy (10 Years) 1953 Hepatitis C 1971 DTaP, Tdap and Td Vaccines (1 - Tdap) 1972 Zoster Vaccines (1 of 2) 2003 Annual Medicare Wellness Visit 2018 Pneumococcal Vaccine: 65+ Years (2 of 2 - PPSV23 or PCV20) 09/19/2020 09/19/2019 COVID-19 Vaccine (2 - season) 2024 12/17/2021 Influenza Adult (#1) 2024 09/18/2020, 09/19/2019, 10/17/2015, Additional history exists RSV Immunization or 60+ Years (1 - 1-dose 75+ series) 2028 Meningococcal B Vaccine Aged Out No l onger eligible based on patient's age to complete this topic Meningococcal Vaccine Aged Out No mervin willie eligible based on patient's age to complete this topic RSV Immunizations Under 20 Months Aged Out No longer eligible based on patient's age to complete this topic Insurance Care Teams Disability Examiner Relationship Specialty Start Date End Date Jakub Jimenez PA-C [address] [address] PCP - General PHYSICIAN PRODUCTION GRAPHIC DESIGNER 04/29/23
--- OUTSIDE RECORDS SUMMARY | 2025-02-09 13:39 | XMS_ITS | Patient Health Summary ---
Author Organization [facility] Address [address] [place] [address] Care Team Providers Care Digital Learning Platforms Manager Name Role Phone Clemente Ponce MD Primary Care Provider [phone] Note [address] [facility],non-owned Affiliates and Associated Physician Practices is amultiple site organization consisting of ambulatory clinics and hospital sitesin [place], [place], [place] and [place]. This disclosure is being madepursuant to the Care Everywhere program and may not contain all information available regarding this patient. Last updated 18.[facility] Social History Tobacco Use Types Packs/Day Years Used Date Smoking Tobacco: Never Assessed Sex and Gender Information Value Date Recorded Sex Assigned at Not on file Gender Identity Not on file Sexual Orientation Not on file Procedures * XR PELVIS W BILAT HIP 2VW(Performed 12/23/2016) Performed for Pain of both hip joints * HEPATIC FUNCTION PANEL(Performed 05/05/2012) * HEPATIC FUNCTION PANEL(Performed 04/21/2012) * QUANTIFERON TB-GOLD(Performed 03/11/2012) * HEPATIC FUNCTION PANEL(Performed 03/10/2012) * XR OUTSIDE CONSULTATION(Performed 06/15/2009) Performed for Joint Pain-Ankle Results * XR HIPS BILATERAL 2 VW W AP PELVIS (12/23/2016 12:47 PM TILESETTER) Anatomical Region Laterality Modality Pelvis, Lower Extremity Radiogra phic Imaging 12/23/2016 1:38 PM TILESETTER Impressions 12/23/2016 1:58 PM TILESETTER No acute osseous abnormality. Edited by Elisa Garcia on 12/23/2016 1:44 PM Narrative 12/23/2016 1:58 PM TILESETTER PELVIS AP VIEW AND BILATERAL HIPS 2 VIEWS EACH INDICATION: Pelvic pain and bilateral hip pain. FINDINGS: A frontal view of the pelvis and two views each of the hips without prior show no acute fracture, subluxation or dislocation. Procedure Note Orlando Garrett MD - 12/23/2016 PELVIS AP VIEW AND BILATERAL HIPS 2 VIEWS EACH INDICATION: Pelvic pain and bilateral hip pain. FINDINGS: A frontal view of the pelvis and two views each of the hips without prior show no acute fracture, subluxation or dislocation. IMPRESSION No acute osseous abnormality. Edited by Elisa Garcia on 12/23/2016 1:44 PM Nelson Marina MD DIAGNOSTIC IMAGING O RDERABLES * HEPATIC FUNCTION PANEL (05/05/2012 7:00 AM CDT) Only the most recent of3 resultswithin the time period is included. Protein Total 6.7 6.2 - 8.3 g/dL [facility] Albumin 4.1 3.6 - 5.1 g/dL [facility] Globulin 2.6 2.1 - 3.7 g/dL (calc) [facility] Albumin/Globulin Ratio 1.6 1.0 - 2.1 (calc) [facility] Bilirubin Total 0.5 0.2 - 1.2 mg/dL [facility] Bilirubin Direct 0.2 < OR = 0.2 mg/dL [facility] Bilirubin Indirect 0.3 0.2 - 1.2 mg/dL (calc) [facility] Alkaline Phosphatase 93 40 - 115 U/L [facility] AST 18 10 - 35 U/L [facility] ALT 25 9 - 60 U/L [facility] Comment: NO COLLECTION DATE RECEIVED. WE HAVE USED THE DATE THE SPECIMEN WAS RECEIVED BY THIS LABORATORY THE COLLECTION DATE. IF THIS IS INCORRECT, PLEASE CONTACT CLIENT SERVICES. PHONE NUMBER: [phone] Test Performed at: [facility] [id number] [place] [id number] CRUZ SEARS DO,MPH Venous blood specimen (specimen) 05/05/2012 7:00 AM CDT 05/05/2012 7:18 AM CDT Fartun James MD LAB - BRAND COMMUNICATIONS MANAGER RY ORDERABLES Performing Organization Address [facility] de Phone Number [facility]) * (ABNORMAL) QUANTIFERON TB-GOLD (03/11/2012 2:00 PM CDT) Pathologist [facility] QuantiFERON TB Gold POSITIVE( A) NEGATIVE [facility]) Comment: Positive test result. 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 M.kansasii, M.marinum and M.szulgai infection cannot be ruled out. QuantiFERON Nil Value 0.09 IU/mL [facility] QuantiFERON Mitogen Value 2.10 IU/mL [facility] QuantiFERON TB Antigen minus Nil value 5.17 IU/mL [facility] Comment: The Nil value adjusts for patient sample background, heterophile antibody effects, or non-specific IFN. The Mitogen serves as a patient positive control. The result Positive , Negative , or Indeterminate is calculated from these values using an FDA-approved algorithm run on Quantiferon(R) software. NO COLLECTION DATE RECEIVED. WE HAVE USED THE DATE THE SPECIMEN WAS RECEIVED BY THIS LABORATORY THE COLLECTION DATE. IF THIS IS INCORRECT, PLEASE CONTACT CLIENT SERVICES. PHONE NUMBER: [phone] Test Performed at: [facility] [address] [id number] CRUZ SEARS DO,MPH 03/11/2012 2:00 PM CDT 03/10/2012 2:50 AM CDT Fartun James MD LAB - BRAND COMMUNICATIONS MANAGER RY ORDERABLES Performing Organization Address [facility] de Phone Number [facility] * XR CONSULTATION (06/15/2009 8:00 AM CDT) Anatomical Region Laterality Modality Other 06/15/2009 8:00 AM CDT Narrative 06/19/2009 4:08 PM CDT LEFT ANKLE DATE OF EXAM- 06/14/2009. HISTORY- Left ankle pain. AP, lateral, and oblique views of the left ankle fail to show evidence of fracture or other osseous abnormality. The AP and oblique views are nonstandard in projection. No significant soft tissue swelling is appreciated. IMPRESSION- NEGATIVE LEFT ANKLE FILMS. Reading Marcela DE DIOS M.D. Releasing Marcela DE DIOS M.D. Released Date Time- 06/19/091607 Judith MEDINA ADM- COVERTFRANCES ATT- COVERTFRANCES REF- CON- PCP- SCP- Procedure Note Iggy De Dios MD - 06/19/2009 LEFT ANKLE DATE OF EXAM- 06/14/2009. HISTORY- Left ankle pain. AP, lateral, and oblique views of the left ankle fail to show evidence of fracture or other osseous abnormality. The AP and oblique views are nonstandard in projection. No significant soft tissue swelling is appreciated. IMPRESSION- NEGATIVE LEFT ANKLE FILMS. Reading Marcela DE DIOS M.D. Releasing Marcela DE DIOS M.D. Released Date Time- 06/19/098 Judith MEDINA ADM- COVERFRANCES Martino ATT- COVERTFRANCES REF- CON- PCP- SCP- Frances Mcintyre MD DIAGNOSTIC IMAGING O [facility] Care Teams Digital Learning Platforms Manager Relationship Specialty Start Date End Date Clemente Ponce MD PCP - General Internal Medicine 12/23/16
--- OUTSIDE RECORDS SUMMARY | 2025-02-09 13:39 | XMS_ITS | Clinical Summary ---
Author Organization [facility] Address [address] [place] [address] Care Team Providers Care Site Foreman Name Role Phone Clemente Ponce MD Primary Care Provider [phone] Source Comments [facility],non-owned Affiliates and Associated Physician Practices is amultiple site organization consisting of ambulatory clinics and hospital sitesin [place], [place], [place] and [place]. This disclosure is being madepursuant to the Care Everywhere program and may not contain all information available regarding this patient. Last updated 18.[facility] [email or web address] Social History Tobacco Use Types Packs/Day Years Used Date Smoking Tobacco: Never Assessed Sex and Gender Information Value Date Recorded Sex Assigned at Not on file Gender Identity Not on file Sexual Orientation Not on file Plan of Treatment Health Maintenance Due Date Last Done Comments COLOGUARD (AGES 45-75) - COL ON CA SCREENING 1953 COLON MONITORING 1953 COLONOSCOPY - COLON CA SCREENING 1953 CT COLONOGRAPHY - COLON CA SCREENING 1953 Colorectal Cancer Screening 1953 FIT - COLON CA SCREENING 1953 FLEX SIG - COLON CA SCREENING 1953 LIPID TESTING 1953 HEPATITIS C SCREENING 11/19/1971 DTAP/TDAP/TD VACCINES (1 - Tdap) 1972 PNEUMOCOCCAL VACCINE 50+ (1 of 1 - PCV) 2003 ZOSTER VACCINE (1 of 2) 2003 COVID-19 VACCINE ( - 2023-2 5 season) 2024 INFLUENZA VACCINE (#1) 2024 DEPRESSION SCREENING 11/30/2024 MEDICARE AWV CALENDAR YEAR 2024 Respiratory Syncytial Virus (RSV) Vaccine Pt: or over 60 yrs (1 - 1-dose 75+ series) 2028 HEPATITIS B VACCINE Aged Out No longe r eligible based on patient's age to complete this topic HIB VACCINE Aged Out No longer eligi ble based on patient's age to complete this topic HPV VACCINE Aged Out No longer eligi ble based on patient's age to complete this topic MENINGOCOCCAL (Group B) VACC INE SHARED DECISION-MAKING Aged Out No longer eligibl e based on patient's age to complete this topic MENINGOCOCCAL GROUPS A/C/Y/W VACCINE Aged Out No longer eligible b ased on patient's age to complete this topic Care Teams Site Foreman Relationship Specialty Start Date End Date Clemente Ponce MD PCP - General Internal Medicine 12/23/16
--- OUTSIDE RECORDS SUMMARY | 2025-02-09 13:39 | XMS_ITS | Referral Summary ---
Author Organization [facility] Address [address] [place] [address] Care Team Providers Care Forest Engineer Name Role Phone Clemente Ponce MD Primary Care Provider [phone] Source Comments [facility],non-owned Affiliates and Associated Physician Practices is amultiple site organization consisting of ambulatory clinics and hospital sitesin [place], [place], [place] and [place]. This disclosure is being madepursuant to the Care Everywhere program and may not contain all information available regarding this patient. Last updated 18.[facility] [email or web address] Social History Tobacco Use Types Packs/Day Years Used Date Smoking Tobacco: Never Assessed Sex and Gender Information Value Date Recorded Sex Assigned at Not on file Gender Identity Not on file Sexual Orientation Not on file Plan of Treatment Not on file Care Teams Forest Engineer Relationship Specialty Start Date End Date Clemente Ponce MD PCP - General Internal Medicine 12/23/16
== END 2025-02-09 11:56 | disposition home or self-care (01) ==
PROVIDERS: PCP Internal Medicine; Visit Provider Internal Medicine
DX: R30.0 Dysuria (principal)
CPT/HCPCS: 81003

== ENCOUNTER 2025-02-27 14:54 | Outpatient (CLI) | payer MEDICARE, SELFPAY ==
[2025-02-27 15:41] LABS: Alanine Aminotransferase 23 U/L (6-50); Albumin Level 4.3 g/dL (3.5-5.1); Alkaline Phosphatase 55 U/L (38-126); Anion Gap 10 mmol/L (4-12); Aspartate Amino Transferase 27 U/L (17-59); Bilirubin,Total 0.2 mg/dL (0.2-1.3); Blood Urea Nitrogen 28 mg/dL (9-20); Calcium 9.7 mg/dL (8.4-10.2); Carbon Dioxide 24 mmol/L (22-30); Chloride 94 mmol/L (98-107); Cholesterol 152 mg/dL (0-200); Estimated Glomerular Filt Rate 53; Glucose 92 mg/dL (65-110); HDL Direct 57 mg/dL; Potassium 4.6 mmol/L (3.4-5.0); Sodium 128 mmol/L (137-145); Triglycerides 254 mg/dL (<150)
[2025-02-27 15:52] LABS: Hemoglobin A1C 5.2 % (<5.7); LDL Cholesterol Direct 46 mg/dL
--- OUTSIDE RECORDS SUMMARY | 2025-02-27 16:31 | XMS_ITS | Clinical Summary ---
Author Organization [facility] Address [facility] [place] [address] Care Team Providers Care Associate Director Of Sales Name Role Phone Jakub Jimenez PA-C Primary Care Provider [phone] Allergies No known active allergies Medications amLODIPine [...] C 1971 DTaP, Tdap and Td Vaccines ( 1 - Tdap) 1972 Zoster Vaccines (1 of 2) 2003 Annual Medicare Wellness Visit 2018 Pneumococcal Vaccine: 65+ Ye ars (2 of 2 - PPSV23 or PCV20) 09/19/2020 09/19/2019 COVID-19 Vaccine (2 - 2023-2 5 season) 2024 12/17/2021 RSV Immunization or 60+ Years (1 - 1-dose 75+ series) 2028 Meningococcal B Vaccine Aged Out No l onger eligible based on patient's age to complete this topic Meningococcal Vaccine Aged Out No mervin willie eligible based on patient's age to complete this topic RSV Immunizations Under 20 Months Aged Out No longer eligible based on patient's age to complete this topic Insurance [facility] Care Teams Associate Director Of Sales Relationship Specialty Start Date End Date Jakub Jimenez PA-C [address] [place] [id number] PCP - General PHYSICIAN SECONDARY CONNECTOR ARMATURE 04/29/23
--- OUTSIDE RECORDS SUMMARY | 2025-02-27 16:31 | XMS_ITS | Clinical Summary ---
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 Gender Identity Not on file Sexual Orientation [...] 09/28/2024, , 09/18/2020, Additional history exists Insurance [facility] MEDICARE HMO Advance Directives For more information, please contact: [phone] * Full Code (Latest Code Status on File) Date Activated Date Inactivated Comments 09/26/2024 2:58 PM 09/28/2024 4:42 PM Care Teams Immigration Specialist Relationship Specialty Start Date End Date Jakub Jimenez PA [address] [facility] [address] [place] [address] PCP - General Physician Freelance Displayer 04/04/24 [place] [address] [place] [address] Consulting Physician Urology 09/28/24
--- OUTSIDE RECORDS SUMMARY | 2025-02-27 16:31 | XMS_ITS | Clinical Summary ---
Author Organization [facility] Address [address] [facility] [place] [address] Care Team Providers Care Manipulative Therapy Specialist Name Role Phone Clemente Ponce MD Primary Care Provider [phone] Source Comments [facility],non-owned Affiliates and Associated Physician Practices is amultiple site organization consisting of ambulatory clinics and hospital sitesin [place], [place], [place] and [place]. This disclosure is being madepursuant to the Care Everywhere program and may not contain all information available regarding this patient. Last updated 18.[facility] [email or web address] Social History Tobacco Use Types Packs/Day Years [...] age to complete this topic Care Teams Manipulative Therapy Specialist Relationship Specialty Start Date End Date Clemente Ponce MD PCP - General Internal Medicine 12/23/16
--- OUTSIDE RECORDS SUMMARY | 2025-02-27 16:31 | XMS_ITS | Referral Summary ---
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 Gender Identity Not on file Sexual Orientation [...] Plan of Treatment Not on file Insurance [facility] MEDICARE HMO Advance Directives For more information, please contact: [phone] * Full Code (Latest Code Status on File) Date Activated Date Inactivated Comments 09/26/2024 2:58 PM 09/28/2024 4:42 PM Care Teams Electromechanical Technician Relationship Specialty Start Date End Date Jakub Jimenez PA [address] [facility] [address] [place], [place] [id number] PCP - General Physician Internet Developer 04/04/24 [place] [address] [place] [address] Consulting Physician Urology 09/28/24
== END 2025-02-27 14:55 | disposition home or self-care (01) ==
PROVIDERS: PCP Internal Medicine; Visit Provider Internal Medicine
DX: E78.5 Hyperlipidemia, unspecified (principal); R73.9 Hyperglycemia, unspecified; I1A.0 Resistant hypertension; R53.83 Other fatigue; I10 Essential (primary) hypertension
CPT/HCPCS: 36415; 80053; 80061; 82088; 83036; 84244

== ENCOUNTER 2025-03-08 15:07 | Outpatient (CLI) | payer MEDICARE, SELFPAY ==
[2025-03-08 15:59] LABS: Hemoglobin 12.1 g/dL (14.0-18.0); Mean Corpuscular HGB Conc 33.6 g/dl (32-36); Mean Corpuscular Hemoglobin 30.8 pg (26-34); Mean Corpuscular Volume 91.6 fl (80-100); Mean Platelet Volume 8.3 fl (7.4-10.4); Platelet Count Result 244 k/mm3 (150-375); Red Blood Count 3.93 M/mm3 (4.6-6.20); Red Cell Distribution Width 12.7 % (11.5-14.5); White Blood Count 6.7 K/mm3 (4.5-10.0)
[2025-03-08 16:16] LABS: Albumin Level 4.4 g/dL (3.5-5.1); Anion Gap 9 mmol/L (4-12); Blood Urea Nitrogen 24 mg/dL (9-20); Calcium 9.7 mg/dL (8.4-10.2); Carbon Dioxide 24 mmol/L (22-30); Chloride 98 mmol/L (98-107); Creatine Kinase 177 U/L (55-170); Estimated Glomerular Filt Rate 46; Glucose 108 mg/dL (65-110); Phosphorus 3.1 mg/dL (2.5-4.5); Potassium 4.8 mmol/L (3.4-5.0); Sodium 131 mmol/L (137-145)
[2025-03-08 16:31] LABS: Erythrocyte Sedimentation Rate 15 mm/hr (0-20)
--- OUTSIDE RECORDS SUMMARY | 2025-03-08 16:35 | XMS_ITS | CONTINUITY OF CARE DOCUMENT ---
Author Name juan francisco chicas Address Unknown Organization [facility] Address [address] [place] [address] Phone [phone] Care Team Providers Care Bonsai Tender Name Role Phone Miranda DOYLE, Sang Unavailable STEFFANIE LANGE MD Unavailable INSURANCE PROVIDERS Payer name Policy type / Coverage type [place] red republican [place] [facility] Commercial insurance [facility] [id number]
--- OUTSIDE RECORDS SUMMARY | 2025-03-08 16:35 | XMS_ITS | Referral Summary ---
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 Gender Identity Not on file Sexual Orientation [...] Plan of Treatment Not on file Insurance [facility] MEDICARE HMO Advance Directives For more information, please contact: [phone] * Full Code (Latest Code Status on File) Date Activated Date Inactivated Comments 09/26/2024 2:58 PM 09/28/2024 4:42 PM Care Teams Tax Compliance Representative Relationship Specialty Start Date End Date Jakub Jimenez PA [address] [facility] [address] [place], [place] [id number] PCP - General Physician Cardio Clinician 04/04/24 [place] [address] [place] [id number] Consulting Physician Urology 09/28/24
--- OUTSIDE RECORDS SUMMARY | 2025-03-08 16:35 | XMS_ITS | Clinical Summary ---
Author Organization [facility] Address [address] [place] [address] Care Team Providers Care Pasting Inspector Name Role Phone Clemente Ponce MD Primary Care Provider [phone] Source Comments [facility],non-owned Affiliates and Associated Physician Practices is amultiple site organization consisting of ambulatory clinics and hospital sitesin [place], [place], [place] and [place]. This disclosure is being madepursuant to the Care Everywhere program and may not contain all information available regarding this patient. Last updated 18.[facility] [employer] Social History Tobacco Use Types Packs/Day Years [...] VACCINE ( - 2023-2 5 season) 2024 DEPRESSION SCREENING 11/30/2024 MEDICARE AWV CALENDAR YEAR 2024 INFLUENZA VACCINE (Season Ended) 2025 Respiratory Syncytial Virus (RSV) Vaccine Pt: or [...] age to complete this topic Care Teams Pasting Inspector Relationship Specialty Start Date End Date Clemente Ponce MD PCP - General Internal Medicine 12/23/16
--- OUTSIDE RECORDS SUMMARY | 2025-03-08 16:35 | XMS_ITS | Clinical Summary ---
Author Organization [facility] Address [facility] [place] [address] Care Team Providers Care Fisheries Technician Name Role Phone Jakub Jimenez PA-C Primary Care Provider [phone] Allergies No known active allergies Medications amLODIPine [...] patient's age to complete this topic Insurance [facility] Care Teams Fisheries Technician Relationship Specialty Start Date End Date Jakub Jimenez PA-C [address] [place] [id number] PCP - General PHYSICIAN ORDER PROCESSING MANAGER 04/29/23
--- OUTSIDE RECORDS SUMMARY | 2025-03-08 16:35 | XMS_ITS | Clinical Summary ---
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 Gender Identity Not on file Sexual Orientation [...] exists Insurance [facility] MEDICARE HMO Advance Directives For more information, please contact: [phone] * Full Code (Latest Code Status on File) Date Activated Date Inactivated Comments 09/26/2024 2:58 PM 09/28/2024 4:42 PM Care Teams Design Inserter Relationship Specialty Start Date End Date Jakub Jimenez PA [address] [facility] [address] [place] [address] PCP - General Physician Window Dresser 04/04/24 [place] [address] [place] [address] Consulting Physician Urology 09/28/24
[2025-03-08 16:48] LABS: Cortisol Random 5.71 ug/dL
[2025-03-08 17:00] LABS: Sodium Urine Random 35 meq/L
[2025-03-08 17:09] LABS: Creatinine Urine 198.6 mg/dL; Total Protein Urine Random 47 mg/dL; Ur Ttl Prot Creatinine Ratio 0.24 mg/mg (0-0.20)
[2025-03-08 17:25] LABS: Add Urine Microscopic? YES; Appearance Urine Clear (Clear); Bacteria Urine None Seen /hpf; Bilirubin Urine Negative (Negative); Blood Urine Negative (Negative); Color Urine Dark Yellow (Yellow); Glucose Urine UA Negative (Negative); Hyaline Casts Urine Present /lpf; Ketones Urine Trace mg/dL (Negative); Leukocyte Esterase Ur Negative LEU/UL (Negative); Nitrate Urine Negative (Negative); Protein Urine 1+ mg/dL (Negative); Squamous Epithelial Cell Urine None Seen /hpf (Few); Urobilinogen Urine 0.2 mg/dL (<2.0); WBC Urine 0-5 /hpf (0-3)
[2025-03-08 18:40] LABS: Parathyroid Intact 55.2 pg/mL (14.5-75.2)
[2025-03-08 18:54] LABS: Complement C3 106 mg/dL (88-165)
[2025-03-09 07:34] LABS: Protein, Total 6.4 g/dL (6.1-8.1)
[2025-03-09 21:08] LABS: Alpha 1 Globulin 0.3 g/dL (0.2-0.3); Alpha 2 Globulin 0.6 g/dL (0.5-0.9); Beta 1 Globulin 0.4 g/dL (0.4-0.6); Gamma Globulin 0.8 g/dL (0.8-1.7)
[2025-03-10 11:58] LABS: Osmolality, Urine 402 mOsm/kg (50-1200)
[2025-03-10 12:09] LABS: Kappa\\Lambda Light Chains 2.44 (0.26-1.65); Lambda Light Chain 15.2 mg/L (5.7-26.3)
[2025-03-10 13:13] LABS: Complement Total CH50 46 U/mL (31-60)
[2025-03-11 19:38] LABS: Immunofixation, Serum Normal pattern.
[2025-03-14 13:43] LABS: ANA Pattern Nuclear, Speckled; Anti Nuclear Antibody Pattern Nuclear, Homogeneous
== END 2025-03-08 15:08 | disposition home or self-care (01) ==
PROVIDERS: PCP Internal Medicine; Visit Provider Internal Medicine Nephrology
DX: R94.4 Abnormal results of kidney function studies (principal); I10 Essential (primary) hypertension; E87.1 Hypo-osmolality and hyponatremia
CPT/HCPCS: 36415; 80069; 81001; 82533; 82550; 82570; 83883; 83930; 83935; 83970; 84155; 84156; 84165; 84300; 84443; 85027; 85652; 86038; 86039; 86160; 86162; 86334

== ENCOUNTER 2025-03-22 10:13 | Outpatient (CLI) | payer MEDICARE, SELFPAY ==
--- OUTSIDE RECORDS SUMMARY | 2025-03-22 11:37 | XMS_ITS | Clinical Summary ---
Author Organization [facility] Address [address] [place] [address] Care Team Providers Care Computer Systems Hardware Analyst Name Role Phone Clemente Ponce MD Primary Care Provider [phone] Source Comments [facility],non-owned Affiliates and Associated Physician Practices is amultiple site organization consisting of ambulatory clinics and hospital sitesin [place], [place], [place] and [place]. This disclosure is being madepursuant to the Care Everywhere program and may not contain all information available regarding this patient. Last updated 18.[facility] [employer] Social History Tobacco Use Types Packs/Day Years Used Date Smoking Tobacco: Never Assessed Sex and Gender Information Value Date Recorded Sex Assigned at Not on file Legal Sex Male 6:13 AM ODD BUNDLE WORKER Gender Identity Not on file Sexual Orientation [...] patient's age to complete this topic Insurance [facility] MANAGED MEDICARE ADV Care Teams Computer Systems Hardware Analyst Relationship Specialty Start Date End Date Clemente Ponce MD PCP - General Internal Medicine 12/23/16
--- OUTSIDE RECORDS SUMMARY | 2025-03-22 11:37 | XMS_ITS | Clinical Summary ---
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 Gender Identity Not on file Sexual Orientation [...] 09/28/2024, , 09/18/2020, Additional history exists Insurance [facility] MEDICARE HMO Advance Directives For more information, please contact: [phone] * Full Code (Latest Code Status on File) Date Activated Date Inactivated Comments 09/26/2024 2:58 PM 09/28/2024 4:42 PM Care Teams Shoe Maker Relationship Specialty Start Date End Date Jaukb Jimenez PA [address] [facility] [address] [place] [address] PCP - General Physician Multimedia Artist 04/04/24 [place] [address] [place] [address] Consulting Physician Urology 09/28/24
--- OUTSIDE RECORDS SUMMARY | 2025-03-22 11:37 | XMS_ITS | Clinical Summary ---
Author Organization [facility] Address [facility] [place] [address] Care Team Providers Care Yardage Tufting Machine Operator Name Role Phone Jakub Jimenez PA-C Primary Care Provider [phone] Allergies No known active allergies Medications amLODIPine [...] Annual Medicare Wellness Visit 2018 Pneumococcal Vaccine: 50+ Ye ars (2 of 2 - PPSV23) 09/19/2020 09/19/2019 COVID-19 Vaccine (2 - 2023-2 [...] patient's age to complete this topic Insurance [facility] [place] [address] Care Teams Yardage Tufting Machine Operator Relationship Specialty Start Date End Date Jakub Jimenez PA-C [address] [place] [address] PCP - General PHYSICIAN SUPPLY CHAIN BUSINESS ANALYST 04/29/23
--- OUTSIDE RECORDS SUMMARY | 2025-03-22 11:37 | XMS_ITS | CONTINUITY OF CARE DOCUMENT ---
Author Name juan francisco chicas Address Unknown Organization [facility] Address [address] [place] [address] Phone [phone] Care Team Providers Care Research Hydrologist Name Role Phone Miranda DOYLE, Sang Unavailable STEFFANIE LANGE MD Unavailable INSURANCE PROVIDERS Payer name Policy type / Coverage type [place] red republican ID [place] [facility] Commercial insurance [facility] [id number]
--- OUTSIDE RECORDS SUMMARY | 2025-03-22 11:37 | XMS_ITS | Referral Summary ---
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 MEDICARE HMO Advance Directives For more information, please contact: [phone] * Full Code (Latest Code Status on File) Date Activated Date Inactivated Comments 09/26/2024 2:58 PM 09/28/2024 4:42 PM Care Teams Fruit Press Operator Relationship Specialty Start Date End Date Jakub Jimenez PA [address] [facility] [address] [place], [place] [id number] PCP - General Physician Box Printing Machine Operator 04/04/24 [place] [address] [place] [address] Consulting Physician Urology 09/28/24
[2025-03-22 11:42] LABS: Sodium Urine Random 62 meq/L
[2025-03-23 05:38] LABS: Total Volume 24 Hour Urine 2700 ml; Urea Nitrogen 24 Hour Urine 16.9 G/DAY (12-20)
[2025-03-24 12:08] LABS: Osmolality, Urine 404 mOsm/kg (50-1200)
== END 2025-03-22 10:14 | disposition home or self-care (01) ==
PROVIDERS: PCP Internal Medicine; Visit Provider Internal Medicine Nephrology
DX: R94.4 Abnormal results of kidney function studies (principal); I10 Essential (primary) hypertension; E87.1 Hypo-osmolality and hyponatremia
CPT/HCPCS: 81050; 82530; 83835; 83935; 84300; 84540; 86335

== ENCOUNTER 2025-04-06 09:04 | Outpatient (CLI) | payer MEDICARE, SELFPAY ==
--- NOTE | ~2025-04-06 | MR_ITS ---
MRI of the brain Clinical History: Tremor Technique: Axial and sagittal T1-weighted images were acquired. These were followed by axial T2-weigh joel, diffusion weighted, gradient, and FLAIR images. Findings: No intracranial hemorrhage, mass lesion, or acute infarct. There are a few minimal FLAIR hy perintense signal abnormalities in the subcortical white matter, especially anterior temporal lobes. Ventricles and subarachnoid spaces are unremarkable. Orbits are unremarkable. Paranasal sinuses and m astoid air cells are clear. Major intracranial flow voids appear intact. Sagittal midline structures are intact. IMPRESSION: Probable minimal chronic microvascular ischemic change, as above. No acute abnormality seen. Reviewed, dictated and finalized at location M. IMPRESSION: Probable minimal chronic microvascular ischemic change, as above. No acute abno rmality seen.
--- OUTSIDE RECORDS SUMMARY | 2025-04-06 09:21 | XMS_ITS | Clinical Summary ---
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 Gender Identity Not on file Sexual Orientation [...] 09/28/2024, , 09/18/2020, Additional history exists Insurance [facility] MEDICARE HMO Advance Directives For more information, please contact: [phone] * Full Code (Latest Code Status on File) Date Activated Date Inactivated Comments 09/26/2024 2:58 PM 09/28/2024 4:42 PM Care Teams Scaffold Worker Relationship Specialty Start Date End Date Jakub Jimenez PA [address] [facility] [address] [place], [place] [id number] PCP - General Physician Package Reinspector 04/04/24 [place] [address] [place] [address] Consulting Physician Urology 09/28/24
--- OUTSIDE RECORDS SUMMARY | 2025-04-06 09:21 | XMS_ITS | CONTINUITY OF CARE DOCUMENT ---
Author Name juan francisco chicas Address Unknown Organization [facility] Address [address] [facility] [address] [place] [address] Phone [phone] Care Team Providers Care Fire Prevention Chief Name Role Phone Miranda DOYLE, Sang Unavailable [phone] STEFFANIE LANGE MD Unavailable INSURANCE PROVIDERS Payer name Policy type / Coverage type [place] red [place] party ID DISTRICT 9 [facility] Commercial insurance [facility] [id number]
--- OUTSIDE RECORDS SUMMARY | 2025-04-06 09:21 | XMS_ITS | Clinical Summary ---
Author Organization [facility] Address [facility] [place] [address] Care Team Providers Care Dramatic Critic Name Role Phone Jakub Jimenez PA-C Primary Care Provider [phone] Allergies No known active allergies Medications amLODIPine [...] to complete this topic Insurance [facility] Care Teams Dramatic Critic Relationship Specialty Start Date End Date Jakub Jimenez PA-C [address] [place] [address] PCP - General PHYSICIAN COMPOSITOR APPRENTICE 04/29/23
--- OUTSIDE RECORDS SUMMARY | 2025-04-06 09:21 | XMS_ITS | Clinical Summary ---
Author Organization [facility] Address [address] [facility] [place] [address] Care Team Providers Care Arson And Bomb Investigator Name Role Phone Clemente Ponce MD Primary Care Provider [phone] Source Comments [facility],non-owned Affiliates and Associated Physician Practices is amultiple site organization consisting of ambulatory clinics and hospital sitesin [place], [place], [place] and [place]. This disclosure is being madepursuant to the Care Everywhere program and may not contain all information available regarding this patient. 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
--- OUTSIDE RECORDS SUMMARY | 2025-04-06 09:21 | XMS_ITS | Referral Summary ---
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 Gender Identity Not on file Sexual Orientation [...] Plan of Treatment Not on file Insurance [facility] MEDICARE HMO Advance Directives For more information, please contact: [phone] * Full Code (Latest Code Status on File) Date Activated Date Inactivated Comments 09/26/2024 2:58 PM 09/28/2024 4:42 PM Care Teams Stone Decorator Relationship Specialty Start Date End Date Jakub Jimenez PA [address] [facility] [address] [place] [address] PCP - General Physician Nail Technician Teacher 04/04/24 [place] [address] [place] [address] Consulting Physician Urology 09/28/24
== END 2025-04-06 09:05 | disposition home or self-care (01) ==
PROVIDERS: PCP Internal Medicine; Visit Provider Internal Medicine
DX: R25.1 Tremor, unspecified (principal); R42 Dizziness and giddiness; R93.0 Abnormal findings on diagnostic imaging of skull and head, not elsewhere classified
CPT/HCPCS: 70551

== ENCOUNTER 2025-05-08 08:20 | Outpatient (CLI) | payer MEDICARE, SELFPAY ==
--- NOTE | ~2025-05-08 | US_ITS ---
Renal-Bladder ultrasound Clinical History: Abnormal renal function studies Technique: Real-time sonographic imaging of the kidneys and urinary bladder was performed. Findings: The right kidney measures 11.4 cm in length. No right hydronephrosis or right renal stone. Renal cortical echogenicity is within normal limits. No renal mass lesion is identified. Status post left nephrectomy. The urinary bladder is partially distended at the time of this exam. No intraluminal echoes are ident ified. No abnormal wall thickening is seen. Impression: No significant abnormality seen. Status post left nephrectomy. Reviewed, dictated and finalized at location . Impression: No significant abnormality seen. Status post left nephrectomy.
== END 2025-05-08 08:21 | disposition home or self-care (01) ==
LOC: GOSHIMG 08:20
PROVIDERS: PCP Internal Medicine; Visit Provider Internal Medicine Nephrology
DX: R94.4 Abnormal results of kidney function studies (principal); Z90.5 Acquired absence of kidney
CPT/HCPCS: 76775

== ENCOUNTER 2025-07-07 09:33 | Outpatient (CLI) | payer MEDICARE, SELFPAY ==
--- OUTSIDE RECORDS SUMMARY | 2025-07-07 09:41 | XMS_ITS | Clinical Summary ---
Author Organization [facility] Address [address] [facility] [place] [address] Care Team Providers Care Fire Captain Name Role Phone Clemente Ponce MD Primary Care Provider [phone] Source Comments [facility],non-owned Affiliates and Associated Physician Practices is amultiple site organization consisting of ambulatory clinics and hospital sitesin [place], [place], [place] and [place]. This disclosure is being madepursuant to the Care Everywhere program and may not contain all information available regarding this patient. 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
--- OUTSIDE RECORDS SUMMARY | 2025-07-07 09:41 | XMS_ITS | Encounter Summary ---
Author Organization [facility] Address [address] [place] [address] Care Team Providers Care Brim Curler Name Role Phone Nicholas Chand MD Unavailable [phone] Charles Joseph DO Primary Care Provider [phone] Reason for Referral * Diagnostic Imaging (Routine) - Closed Specialty Diagnoses / Procedures Referred By Contac t Referred To Contact Diagnoses Resistant hypertension Chronic kidney disease, stage 3a (HCC) Procedures US Doppler Renal Artery LTD Clemente Blankenship MD [address] [facility] [address] [place] [address] Phone: tel: fax: External Order Referral ID Status Reason Start Date Expiration Date Visits Re quested Visits Authorized [id number] Closed 07/06/2025 08/05/2026 1 1 Reason for Visit * Reason Comments Hypertension * Consultation (Routine) - Closed Specialty Diagnoses / Procedures Referred By Contac t Referred To Contact Cardiology Diagnoses Resistant hypertension Charles Joseph DO [address] [place] [address] Phone: tel: fax: [facility] Cardiology [address] [facility] [address] [place] [address] Phone: tel: fax: Referral ID Status Reason Start Date Expiration Date V isits Requested Visits Authorized [id number] Closed Specialty Services Required 06/30/2025 07/30/2026 1 1 Encounter Details Date Type Department Care Team (Late st Contact Info) Description 07/06/2025 9:45 AM CDT Office Visit [facility] Cardiology [address] [place] [id number] Clemente Blankenship MD [address] [place] [address] Lipid screening (Primary Dx); Resistant hypertension; Chronic kidney disease, stage 3a (HCC) Social History Tobacco Use Types Packs/Day Years [...] on file 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 Gender Identity Not on file Sexual Orientation Not on file documented as of this encounter Last Filed Vital Signs Vital Sign Reading Time Taken Comments Blood Pressure 138/82 07/06/2025 9:44 AM CDT Pulse 67 07/06/2025 9:44 AM CDT Temperature - - Respiratory Rate 14 07/06/2025 9:44 AM CDT Oxygen Saturation 96% 07/06/2025 9:44 AM CDT Inhaled Oxygen Concentration - - Weight 110.7 kg (244 lb) 07/06/2025 9:44 AM CDT Height 180.3 cm (5' 11) 07/06/2025 9:44 AM CDT Body Mass Index 34.03 07/06/2025 9:44 AM CDT documented in this encounter Progress Notes * Clemente Blankenship MD - 07/06/2025 9:45 AM CDT [facility] FOLLOW UP 07/06/2025 Sarath Pineda Jr. is a 69 y.o. male who presents for follow up of hypertension and left bundlebranch block. This is a patient that I met in consultation at [facility] in March of 2024. He had some episodes of chest pain that were atypical of angina. He has a longstanding history of significant hypertension. He was admitted for evaluation. His electrocardiogram was found to demonstrate a left bundle branch block which had not been seen on previous ECGs. For this reason a Lexiscan nuclear stress test was recommended. That could not be done in the hospital in a timely fashion because the patient was not kept NPO. Acute coronary syndrome was ruled out with serial troponins that were n egative. He was brought back to the office for his Lexiscan stress test which was done on 04/04/2024. The study demonstrated no evidence of ischemia and an ejection fraction of 50%. The patient returns for follow-up at the request of the PCP because of resistant hypertension. I last saw this patient in March of this year and essentially signed off of his case because we did not find any cardiac pathology other than a left bundle branch block. He is not reporting any cardiac symptoms or concerns. His blood pressure in the office today is fine but he is concerned that it is more variable. 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 He had a left and nephrectomy done he thinks at [facility] and was told that he had a very small carcinoma. He did not require any other treatment of this lesion. He is not having any cardiac symptoms he does not have any syncope or presyncope. His hypertension regimen is as detailed below. He is concerned because he was told by physicians in the past that if he lost a lot of weight his blood pressure would likely improve and despite losing about 50 lb his blood pressure has worsened. He sees both his primary care and a switch operator because he has some chronic kidney disease as well. Spoke to the patient and his daughter about the possibility of renal artery stenosis. We discussed the fact that he be had a right renal artery lesion especially following a left nephrectomy this could certainly cause resistant hypertension. I would have imagine that both his PCP and/or his switch operator would have considered this already. He does not remember having any evaluation for renal artery stenosis. His lab data is normal his potassium levels are normal. REVIEW OF SYSTEMS General ROS: negative for - chills, fatigue, fever, malaise, night sweats, weight gain or weight loss Psychological ROS: negative for - anxiety, depression, memory difficulties or sleep disturbances Ophthalmic ROS: negative for - blurry vision, decreased vision, loss of vision or scotomata ENT ROS: negative for - epistaxis, headaches, hearing change, nasal congestion, nasal discharge, sore throat, vertigo or visual changes Hematological and Lymphatic ROS: negative for - bleeding problems, blood clots, bruising, fatigue or weight loss Endocrine ROS: negative for - hot flashes, palpitations, polydipsia/polyuria or unexpected weight changes Respiratory ROS: negative for - cough, hemoptysis, orthopnea, shortness of breath, tachypnea or wheezing Cardiovascular ROS: negative for - chest pain, dyspnea on exertion, edema, irregular heartbeat, loss of consciousness, murmur, orthopnea, palpitations, paroxysmal nocturnal dyspnea, rapid heart rate or shortness of breath Gastrointestinal ROS: negative for - abdominal pain, appetite loss, blood in stools, constipation, diarrhea, gas/bloating, heartburn, hematemesis, melena or nausea/vomiting Genito-Urinary ROS: negative for - dysuria, erectile dysfunction or hematuria Musculoskeletal ROS: negative for - joint pain, muscle pain or muscular weakness Dermatological ROS: negative for dry skin, eczema, pruritus and rash HOME MEDICATIONS Current Outpatient Medications: acetaminophen 500 mg capsule, Take 2 capsules (1,000 mg total) by mouth every 6 (six) hours, Disp: , Rfl: adalimumab (Humira) 40 mg/0.8 mL pen injector kit, Inject under the skin once a week, Disp: , Rfl: adalimumab-bwwd 40 mg/0.4 mL syringe, Inject under the skin, Disp: , Rfl: albuterol HFA (PROVENTIL HFA,VENTOLIN HFA,PROAIR HFA) 90 mcg/actuation inhaler, Inhale 2 puffs every 4 (four) hours as needed, Disp: , Rfl: atorvastatin (LIPITOR) 10 mg tablet, Take 1 tablet (10 mg total) by mouth daily, Disp: , Rfl: busPIRone (BUSPAR) 5 mg tablet, Take 1 tablet (5 mg total) by mouth 3 (three) times a day, Disp: , Rfl: chlorthalidone (HYGROTON) 25 mg tablet, Take 1 tablet (25 mg total) by mouth daily, Disp: , Rfl: citalopram (CeleXA) 40 mg tablet, Take 1 tablet (40 mg total) by mouth daily, Disp: , Rfl: fluticasone propion-salmeteroL (ADVAIR DISKUS) 250-50 mcg/dose diskus inhaler, Inhale 2 times dailyas needed, Disp: , Rfl: folic acid (FOLVITE) 1 mg tablet, Take 1 tablet (1 mg total) by mouth daily, Disp: , Rfl: furosemide (LASIX) 20 mg tablet, , Disp: , Rfl: gabapentin (NEURONTIN) 400 mg capsule, Take 1 capsule (400 mg total) by mouth 2 (two) times a day, Disp: , Rfl: hydrALAZINE (APRESOLINE) 100 mg tablet, Take 1 tablet (100 mg total) by mouth 2 (two) times a day, Disp: , Rfl: lisinopriL (PRINIVIL,ZESTRIL) 40 mg tablet, Take 1 tablet (40 mg total) by mouth every morning, Disp: , Rfl: multivitamin tablet, Take 1 tablet by mouth every morning, Disp: , Rfl: NIFEdipine (NIFEdipine CC) 90 mg 24 hr tablet, Take 1 tablet (90 mg total) by mouth daily, Disp: 16tablet, Rfl: 0 omega-3 fatty acids-fish oil 300-1,000 mg capsule, Take 1 capsule (1 g total) by mouth every morning, Disp: , Rfl: pantoprazole DR (PROTONIX) 40 mg EC tablet, Take 1 tablet (40 mg total) by mouth daily, Disp: , Rfl: polycarbophil (FIBERCON) 625 mg tablet, Take 1 tablet (625 mg total) by mouth 2 (two) times a day, Disp: , Rfl: primidone (MYSOLINE) 50 mg tablet, Take 4 tablets (200 mg total) by mouth 2 (two) times a day, Disp: , Rfl: terazosin (HYTRIN) 10 mg capsule, Take 1 capsule (10 mg total) by mouth daily, Disp: , Rfl: zaleplon (SONATA) 10 mg capsule, Take 1 capsule (10 mg total) by mouth daily, Disp: , Rfl: naproxen (ANAPROX DS) 550 mg tablet, Take 1 tablet (550 mg total) by mouth 2 (two) times a day withmeals (Patient not taking: Reported on 07/06/2025), Disp: , Rfl: traMADoL (ULTRAM) 50 mg tablet, Take 1 tablet (50 mg total) by mouth every 8 (eight) hours as needed (Patient not taking: Reported on 07/06/2025), Disp: , Rfl: LABS AND OTHER DIAGNOSTIC TESTS No results found for: CHOL No results found for: HDL No results found for: LDLCALC No results found for: TRIG No results found for: CHOLHDL Lab Results Component Value Date WBC 8.2 09/28/2024 HGB 11.0 (L) 09/28/2024 HCT 31.9 (L) 09/28/2024 MCV 88.6 09/28/2024 No lab exists for component: LABALBU PHYSICAL EXAM Vitals BP 138/82 (BP Location: Left arm, Patient Position: Sitting) Pulse 67 Resp 14 Ht 180.3 cm (5' 11) Wt 110.7 kg (244 lb) SpO2 96% BMI 34.03 kg/m?? Physical Examination: General appearance - alert, well appearing, and in no distress, oriented to person, place, and time and acyanotic, in no respiratory distress Mental status - affect appropriate to mood Eyes - extraocular eye movements intact, sclera anicteric, no pallor Ears - external earsappear normal, hearing grossly normal bilaterally Nose - normal and patent, no erythema or discharge Mouth - mucous membranes moist, pharynx appears normal, dental hygiene good and tongue normal Neck - supple, no significant neck masses, carotids upstroke normal bilaterally, no bruits, no JVD Chest - clear to auscultation, no wheezes, rales or rhonchi, symmetric air entry, no tachypnea, retractions or cyanosis Heart - normal rate, regular rhythm, normal S1, S2, no murmurs, rubs, clicks or gallops, no JVD Abdomen - soft, nontender, nondistended, no masses or organomegaly bowel sounds normal Neurological - alert, oriented, normal speech, no focal findings or movement disorder noted Musculoskeletal - no joint tenderness, deformity or swelling, no muscular tenderness noted Extremities - peripheral pulses normal, no pedal edema, no clubbing or cyanosis Skin - normal coloration and turgor, no rashes, no suspicious skin lesions noted ASSESSMENT Sarath was seen today for hypertension. Diagnoses and all orders for this visit: Lipid screening - Lipid panel; Future - POCT lipid panel Resistant hypertension - Ambulatory referral to Cardiology PLAN/RECOMMENDATIONS Continue current antihypertensive regimen. Explained to the patient and family that variability in blood pressure could be in part due to hydralazine which is a short-acting drug but there is nothing I can do to prevent variability in her blood pressure Arrange for right renal artery ultrasound to ensure that he does not have renal artery stenosis in his remaining kidney. It is likely that his switch operator has already considered this possibility Follow-up with me after the renal artery sonogram Clemente Blankenship MD documented in this encounter Plan of Treatment Scheduled Orders Name Type Priority Associated Diagnoses Orde r Schedule Lipid panel Lab Routine Lipid screening Expected: 07/09/2025, Expires: 07/06/2026 Doppler Renal Artery LTD Imaging Schedule Routine, Read Routine (OP Routine) Resistant hypertension Chronic kidney disease, stage 3a (HCC) Expected: 07/06/2025, Expires: 07/06/2026 documented as of this encounter Procedures Procedure Name Priority Date/Time Associated Diagnosis Comments POCT LIPID PANEL Routine 07/06/2025 9:44 AM CDT Lipid screening documented in this encounter Results * (ABNORMAL) POCT lipid panel (07/06/2025 9:44 AM CDT) Cholesterol, POC 179 <200 MG/DL HDL, POC 53 >=40 mg/dL Triglycerides, POC 152(A) <=149 mg/dL LDL Cholesterol POC 96 <=129 mg/dL Chol/HDL Ratio, POC 3.4 NONE Non-HDL Cholesterol, POC 126 NONE mg/dL Cholesterol Total, POC 179 30 - 199 mg/dL Capillary blood 07/06/2025 9 :44 AM CDT us Clemente Blankenship MD POINT OF CARE TEST ORDER MANNY Final Result documented in this encounter Visit Diagnoses Diagnosis Lipid screening- Primary Screening for lipoid disorders Resistant hypertension Chronic kidney disease, stage 3a (HCC) documented in this encounter Historical Medications * This list may reflect changes made after this encounter. furosemide (LASIX) 20 mg tablet 06/20/2025 fluticasone propion-salmetero L (ADVAIR DISKUS) 250-50 mcg/dose diskus inhaler Inhale 2 times daily as needed 03/31/2023 adalimumab-bwwd 40 mg/0.4 mL syringe Inject under the skin 05/17/2025 adalimumab (Humira) 40 mg/0.8 mL pen injector kit Inject under the skin once a week added in this encounter Orders Outpatient Referral Count Last Ordered Date Fir st Ordered Date AMB REFERRAL TO CARDIOLOGY 1 07/06/2025 documented in this encounter Care Teams Brim Curler Relationship Specialty Start Date End Date Charles Joseph DO [address] [facility] [address] [facility] [address] [place] [address] PCP - General Internal Medicine 06/30/25 [place] [address] [place] [id number] Consulting Physician Urology 09/28/24 documented as of this encounter
--- OUTSIDE RECORDS SUMMARY | 2025-07-07 09:41 | XMS_ITS | Clinical Summary ---
Author Organization [facility] [address] Address [address] [place] [address] Care Team Providers Care Waste Machine Tender Name Role Phone Nicholas Chand MD Unavailable [phone] Charles Joseph DO Primary Care Provider [phone] Allergies No known active allergies Medications NIFEdipine [...] mouth every 6 (six) hours 09/28/2024 Active adalimumab (Humira) 40 mg/0.8 mL pen injector kit Inject under the skin once a week Active adalimumab-bwwd 40 mg/0.4 mL syringe Inject under the skin 05/17/2025 Active fluticasone propion-salmete roL (ADVAIR DISKUS) 250-50 mcg/dose diskus inhaler Inhale 2 times daily as needed 03/31/2023 Active furosemide (LASIX) 20 mg tablet 06/20/2025 Active Active Problems Problem Noted Date Diagnosed Date Resistant hypertension 07/06/2025 Renal mass 09/06/2024 LBBB (left bundle branch block) 04/21/2024 Closed fracture of calcaneus 09/24/2015 Encounter for long-term (current) use of antibio tics 08/27/2015 Infection due to Staphylococcus epidermidis 08/01 Osteomyelitis 08/09/2015 Clavicle pain 07/16/2015 Arthralgia of shoulder 08/20/2011 Sprain of elbow 09/10/2010 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 Encounters Date Type Department Care Team Description 07/06/2025 9:45 AM CDT Office Visit [facility] Cardiology [address] [place] [phone] Clemente Blankenship MD Lipid screening (Primary Dx); Resistant hypertension; Chronic kidney disease, stage 3a (HCC) from Last 3 Months Immunizations Immunization Administration Dates Next Due Influenza, Trivalent, High D ose, Split, Preservative Free, Intramuscular 09/28/2024 Surgical History Surgery Date Site/Laterality Comments KNEE ARTHROPLASTY Bilateral SHOULDER ARTHROPLASTY Bilateral CARPAL TUNNEL RELEASE Bilateral SHOULDER SURGERY Left clavicle repair BACK SURGERY Medical History Medical History Date Comments Hypertension PONV (postoperative nausea and vomiting) Vertigo COPD (chronic obstructive pulmonary disease) GERD (gastroesophageal reflux disease) Family History Medical [...] file 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 Gender Identity Not on file Sexual Orientation Not on file Obstetrics History Last Filed Vital Signs Vital Sign Reading Time Taken Comments Blood Pressure 138/82 07/06/2025 9:44 AM CDT Pulse 67 07/06/2025 9:44 AM CDT Temperature 36.9 C (98.5 F) 09/28/2024 4:36 AM CDT Respiratory Rate 14 07/06/2025 9:44 AM CDT Oxygen Saturation 96% 07/06/2025 9:44 AM CDT Inhaled Oxygen Concentration - - Weight 110.7 kg (244 lb) 07/06/2025 9:44 AM CDT Height 180.3 cm (5' 11) 07/06/2025 9:44 AM CDT Body Mass Index 34.03 07/06/2025 9:44 AM CDT Plan of Treatment Health Maintenance Due Date Last Done Comments Colon Cancer Screening-Colonoscopy 1955 Depression Screening 1953 Hepatitis C Screening 1953 Hepatitis B Screening 1971 Zoster Vaccine (1 of 2) 2003 Well Visit 65+ 2018 Pneumococcal vaccine 65+ (2 of 2 - PPSV23) 09/19/2020 09/19/2019 Covid-19 Vaccine (4 - 2023-2 5 season) 2024 12/17/2021, 03/25/2021, 03/04/2021 Influenza Vaccine (#1) 2025 , 12/17/2021, 09/18/2020, Additional history exists Fall Risk Assessment 09/28/2025 09/28/2024 DTaP/Tdap/Td Vaccine (2 - Td or Tdap) 11/10/2027 11/10/2017 Procedures Procedure Name Priority Date/Time Associated Diagnosis Comments POCT LIPID PANEL Routine 07/06/2025 9:44 AM CDT Lipid screening from Last 3 Months Results * (ABNORMAL) POCT lipid panel (07/06/2025 [...] OF CARE TEST ORDER MANNY Final Result from Last 3 Months Insurance [facility] MEDICARE ADVANTAGE Advance Directives For more information, please contact: [phone] * Full Code (Latest Code Status on File) Date Activated Date Inactivated Comments 09/26/2024 2:58 PM 09/28/2024 4:42 PM Care Teams Waste Machine Tender Relationship Specialty Start Date End Date Charles Joseph DO [address] [facility] [address] [place] [address] PCP - General Internal Medicine 06/30/25 [place] [address] [place] [address] Consulting Physician Urology 09/28/24
[2025-07-07 10:23] LABS: Hematocrit 34.3 % (42.0-52.0); Hemoglobin 11.5 g/dL (14.0-18.0); Mean Corpuscular HGB Conc 33.5 g/dl (32-36); Mean Corpuscular Hemoglobin 31.4 pg (26-34); Mean Corpuscular Volume 93.7 fl (80-100); Platelet Count Result 240 k/mm3 (150-375); Red Blood Count 3.66 M/mm3 (4.6-6.20); White Blood Count 3.8 K/mm3 (4.5-10.0)
[2025-07-07 10:41] LABS: Creatine Kinase 356 U/L (55-170)
[2025-07-07 10:46] LABS: Albumin Level 4.0 g/dL (3.5-5.1); Anion Gap 7 mmol/L (4-12); Blood Urea Nitrogen 17 mg/dL (9-20); Calcium 9.9 mg/dL (8.4-10.2); Carbon Dioxide 25 mmol/L (22-30); Chloride 104 mmol/L (98-107); Estimated Glomerular Filt Rate > 60; Glucose 121 mg/dL (65-110); Potassium 4.7 mmol/L (3.4-5.0); Sodium 136 mmol/L (137-145)
[2025-07-07 11:36] LABS: Vitamin B12 404.0 pg/mL (239-931)
[2025-07-07 11:55] LABS: Total Protein Urine Random 8 mg/dL; Ur Ttl Prot Creatinine Ratio 0.05 mg/mg (0-0.20)
[2025-07-07 12:03] LABS: Parathyroid Intact 39.4 pg/mL (14.5-75.2)
[2025-07-07 12:58] LABS: Hemoglobin A1C 5.1 % (<5.7)
[2025-07-10 11:08] LABS: Osmolality, Serum 279 mOsmol/kg (280-301)
[2025-07-10 14:08] LABS: Albumin 3.8 g/dL (2.9-4.4); Alpha-1-Globulin 0.2 g/dL (0.0-0.4); Alpha-2-Globulin 0.6 g/dL (0.4-1.0); Gamma Globulin 0.8 g/dL (0.4-1.8)
[2025-07-11 13:08] LABS: Immunoglobulin A, Qn 82 mg/dL (61-437); Immunoglobulin G, Qn 961 mg/dL (603-1613); Immunoglobulin M, Qn 68 mg/dL (15-143)
[2025-07-13 06:07] LABS: 1,25-Dihydroxy, Vitamin D-2 <10 pg/mL (.); 1,25-Dihydroxy, Vitamin D-3 35 pg/mL (.); Total 1,25-Dihydroxy,Vitamin D 35 pg/mL (.)
[2025-07-13 22:07] LABS: Vit. B1, Whole Blood 83.8 nmol/L (66.5-200.0)
== END 2025-07-07 09:34 | disposition home or self-care (01) ==
LOC: ANHLAB 09:38
PROVIDERS: PCP Internal Medicine; Referring Provider Psychiatry & Neurology Neurology; Visit Provider Internal Medicine Nephrology
DX: R94.4 Abnormal results of kidney function studies (principal); I10 Essential (primary) hypertension; E87.1 Hypo-osmolality and hyponatremia; G62.9 Polyneuropathy, unspecified; G25.0 Essential tremor; M54.50 Low back pain, unspecified; M48.062 Spinal stenosis, lumbar region with neurogenic claudication; G56.23 Lesion of ulnar nerve, bilateral upper limbs; Z13.1 Encounter for screening for diabetes mellitus; I44.7 Left bundle-branch block, unspecified; D64.9 Anemia, unspecified; E55.9 Vitamin D deficiency, unspecified
CPT/HCPCS: 36415; 80069; 82533; 82550; 82570; 82607; 82652; 82784; 83036; 83090; 83921; 83930; 83970; 84155; 84156; 84165; 84207; 84425; 85027; 86160; 86235; 86334

== ENCOUNTER 2025-07-11 10:21 | Outpatient (CLI) | payer MEDICARE, SELFPAY ==
--- NOTE | ~2025-07-11 | US_ITS ---
EXAMINATION: US venous doppler [facility] DATE: 07/11/2025 11:05 INDICATION: Left lower limb swelling TECHNIQUE: Grayscale ultrasound images without and with compression and Doppler ultrasound images of the bilateral lower extremity veins were obtained. COMPARISON: None. FINDINGS: The visualized portions of right common femoral vein, profunda (deep) femoral vein, femoral vein, pop liteal vein, posterior tibial veins, peroneal veins, gastrocnemius vein and greater saphenous vein ou tflow are patent. The visualized portions of left common femoral vein, profunda femoral vein, femoral vein, popliteal v ein, posterior tibial veins, peroneal veins, gastrocnemius vein and greater saphenous vein outflow ar e patent. IMPRESSION: 1. No deep venous thrombosis in either lower limb. Reviewed, dictated and finalized at location A.
--- OUTSIDE RECORDS SUMMARY | 2025-07-11 11:07 | XMS_ITS | Clinical Summary ---
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 Gender Identity Not on file Sexual Orientation [...] Pneumococcal vaccine 65+ (2 of 2 - PCV20 or PCV21) 09/19/2020 09/19/2019 Covid-19 Vaccine (4 - 2023-2 [...] Final Result from Last 3 Months Insurance [facility] MEDICARE ADVANTAGE [facility] MEDICARE Address: [facility] [address] [place] [address] Advance Directives For more information, please contact: [phone] * Full Code (Latest Code Status on File) Date Activated Date Inactivated Comments 09/26/2024 2:58 PM 09/28/2024 4:42 PM Care Teams Emergency Veterinary Technician Relationship Specialty Start Date End Date Charles Joseph DO [address] [facility] [address] [place] [address] PCP - General Internal Medicine 06/30/25 [place] [address] [place] [address] Consulting Physician Urology 09/28/24
--- OUTSIDE RECORDS SUMMARY | 2025-07-11 11:07 | XMS_ITS | Clinical Summary ---
Author Organization [facility] Address [address] [place] [address] Care Team Providers Care Sack Maker Name Role Phone Clemente Ponce MD Primary Care Provider [phone] Source Comments [facility],non-owned Affiliates and Associated Physician Practices is amultiple site organization consisting of ambulatory clinics and hospital sitesin [place], [place], [place] and [place]. This disclosure is being madepursuant to the Care Everywhere program and may not contain all information available regarding this patient. Last updated 18.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
--- OUTSIDE RECORDS SUMMARY | 2025-07-11 11:07 | XMS_ITS | Clinical Summary ---
Author Organization [facility] Address [facility] [place] [address] Care Team Providers Care Permastone Mechanic Name Role Phone Jakub Jimenez PA-C Primary Care Provider [phone] Allergies No known active allergies Medications amLODIPine [...] 9:49 AM CDT Height 179.1 cm (5' 10.5) 04/29/2023 1:00 PM CD T Body Mass [...] patient's age to complete this topic Insurance [facility] Care Teams Permastone Mechanic Relationship Specialty Start Date End Date Jakub Jimenez PA-C [address] [place] [address] PCP - General PHYSICIAN COIL FINISHER 04/29/23
== END 2025-07-11 10:22 | disposition home or self-care (01) ==
LOC: ANHIMG 10:22
PROVIDERS: PCP Internal Medicine; Visit Provider Internal Medicine Nephrology
DX: M79.89 Other specified soft tissue disorders (principal)
CPT/HCPCS: 93970

== ENCOUNTER 2025-08-31 10:19 | Outpatient (RCR) | payer MEDICARE, SELFPAY ==
--- NOTE | 2025-08-31 10:04 | OPREHPOC ---
Outpatient Therapy Plan of Care This is a Multidisciplinary Plan of Care that may contain components documented by all disciplines (PT, OT, and ST.) PT Problem 1 PT Problem #1 Knowledge Deficit PT Goal 1 Goal / Goal Update 1*independent with HEP Target Visit 8 PT Problem 2 PT Problem #2 Pain PT Goal 1 Goal / Goal Update *monitor back pain during sessions. Target Visit 8 PT Problem 3 PT Problem #3 Impaired Strength PT Goal 1 Goal / Goal Update Increase strength of R and L LE to improve gait and balance, mobility skills: 1* R and L hip abduction strength of 4/5 single leg standing with 1 UE support x 15 seconds with good stability 2* R 3* L sitting ankle circles with good control x 20 reps 4* R 5* L Target Visit 8 PT Problem 4 PT Problem #4 Impaired Balance PT Goal 1 Goal / Goal Update improve balance and mobility, to decrease risk for falls 1* tinetti balance/gait score of 25/28 2* 2 minute walking test distance of 450' 3* 5 reps sit/stand without use of UE x 16 seconds 4* pt report no fear of falling with sit to stand transfer Target Visit 8
--- NOTE | 2025-08-31 10:04 | PTOPEVAL1 ---
Assessment and note entered by Dee Bunch, PT Evaluation Information Assessment Status Evaluation ICD-10 Condition Codes (PT) Repeated falls R29.6,Difficulty Walking R26.2, Abnormalities of gait and mobility R26.9,Weakness R53.1 Onset about 1 year Subjective Information in the past 6 months have fallen at least 20x- with walking, lose balance; is able to get himself up off the floor; L leg gives out and weaker than R; wobble side/ side when walking; does not do any leg exercises at home, walks and does house things --------- activity: at home with , who works; does not use a cane or walker- does not want to use; have basement Reported Pain Level Pain Score Self Report Additional Pain Score Comments chronic pain -08/09: back, L shoulder & elbow Assessment PT Clinical Summary Sarath has the diagnosis of decreased gait balance and falls. He reports falling more than 20 times over the past 6 months. Modified Falls Efficacy scale rating of 104/140= average score of 7 with confidence/ 10= completely confident. He is at home with his and doing all of his self care and home tasks. And reports he does not want to use a cane or walker. Medical history includes: chronic back pain, back surgery; bilateral hand, knee and shoulder surgery; essential tremors; poor control of HTN, with dizziness. With the evaluation: decreased strength of trunk and LEs; 5 reps sit/stand without use of UE in 21 seconds; Tinetti balance/gait score of 17/28= high risk for falls; 2 minute walking test distance of 375'; gait with bilateral foot slap, lateral motion/ wobble; Skilled PT services are indicated for therapeutic exercises to increase strength and mobility, gait balance and education for HEP and safety. Plan of Care Interventions Gait Training,Manual Therapy,Neuro Re-education, Patient/Caregiver Education,Therapeutic Activities ,Therapeutic Exercise PT Services Indicated Yes Treatment Frequency and 1x/wk for 8 visits; pt requested 1x/wk due to Duration insurance These treatments will address the objective and functional deficits as defined above. The patient will be advanced safely and appropriately in order for the patient to progress towards his/her prior level of function. Additional exercises will be introduced and as well as a comprehensive home exercise program upon discharge, if needed, ?to ensure carryover of functional gains achieved in the clinic. This treatment plan has been reviewed and agreement upon by the patient.
== END 2025-11-29 23:59 | disposition home or self-care (01) ==
LOC: ANHPT 10:19
PROVIDERS: PCP Internal Medicine; Visit Provider Internal Medicine
DX: R26.81 Unsteadiness on feet (principal)
CPT/HCPCS: 97110; 97161; 97530

== ENCOUNTER 2025-10-06 10:06 | Outpatient (CLI) | payer MEDICARE, SELFPAY ==
[2025-10-06 10:49] LABS: Hematocrit 36.7 % (42.0-52.0); Hemoglobin 12.5 g/dL (14.0-18.0); Mean Corpuscular HGB Conc 34.1 g/dl (32-36); Mean Corpuscular Hemoglobin 31.9 pg (26-34); Mean Corpuscular Volume 93.6 fl (80-100); Platelet Count Result 240 k/mm3 (150-375); Red Blood Count 3.92 M/mm3 (4.6-6.20); White Blood Count 5.0 K/mm3 (4.5-10.0)
--- OUTSIDE RECORDS SUMMARY | 2025-10-06 10:56 | XMS_ITS | Clinical Summary ---
Author Organization [facility] Address [address] [place] [address] Care Team Providers Care Director Of Retail Analytics Name Role Phone Clemente Ponce MD Primary Care Provider [phone] Source Comments [facility],non-owned Affiliates and Associated Physician Practices is amultiple site organization consisting of ambulatory clinics and hospital sitesin [place], [place], [place] and [place]. This disclosure is being madepursuant to the Care Everywhere program and may not contain all information available regarding this patient. 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
--- OUTSIDE RECORDS SUMMARY | 2025-10-06 10:56 | XMS_ITS | Clinical Summary ---
Author Organization [facility] Address [facility] [place] [address] Care Team Providers Care Process Owner Name Role Phone Jakub Jimenez PA-C Primary Care Provider [phone] Allergies No known active allergies Medications amLODIPine [...] 1972 Zoster Vaccines (1 of 2) 2003 RSV Immunization or 60+ Years (1 - Risk 60-74 years 1-dose series) 2013 Annual Medicare Wellness Visit 2018 Pneumococcal Vaccine: 50+ Years (2 of 2 - PCV20 or PCV21) 09/19/2020 09/19/2019 COVID-19 Vaccine (2 - Moderna risk series) 01/14/2022 12/17/2021 Influenza Adult (#1) 2025 09/18/2020, 09/19/2019, 10/17/2015, Additional history exists Hepatitis A Vaccines Aged Out No long er eligible based on patient's age to complete this topic Meningococcal B Vaccine Aged Out No l onger eligible based on patient's age to complete this topic Meningococcal Vaccine Aged Out No mervin willie eligible based on patient's age to complete this topic RSV Immunizations Under 20 Months Aged Out No longer eligible based on patient's age to complete this topic Insurance Care Teams Process Owner Relationship Specialty Start Date End Date Jakub Jimenez PA-C [address] [place] [address] PCP - General PHYSICIAN SECURITY CONTROL ASSESSOR 04/29/23
--- OUTSIDE RECORDS SUMMARY | 2025-10-06 10:56 | XMS_ITS | Clinical Summary ---
Author Organization [facility] [address] Address [address] [place] [address] Care Team Providers Care Canopy Stringer Name Role Phone Nicholas Chand MD Unavailable [phone] Charles Joseph DO Primary Care Provider [phone] Allergies No known active allergies Medications NIFEdipine [...] Encounters Date Type Department Care Team Description 09/11/2025 9:30 AM CDT Office Visit [facility] Cardiology [address] [address] [address] [place] [address] Clemente Blankenship MD LBBB (left bundle branch block) (Primary Dx); Resistant hypertension 07/18/2025 9:09 AM CDT - 07/18/2025 11:59 PM CDT Hospital Encounter [facility] [address] [place] [address] Resistant hypertension; Chronic kidney disease, stage 3a (HCC) Discharge Disposition: Discharge to home or self care 07/06/2025 9:45 AM CDT Office Visit [facility] Cardiology [address] [facility] [address] [facility] [address] Clemente Blankenship MD Lipid screening (Primary Dx); [...] on file Legal Sex Male 3:23 AM PIERCING ARTIST Gender Identity Not on file Sexual Orientation Not on file Last Filed Vital Signs Vital Sign Reading Time Taken Comments Blood Pressure 134/58 09/11/2025 9:26 AM CDT Pulse 73 09/11/2025 9:26 AM CDT Temperature 36.9 C (98.5 F) 09/28/2024 4:36 AM CDT Respiratory Rate 14 07/06/2025 9:44 AM CDT Oxygen Saturation 95% 09/11/2025 9:26 AM CDT Inhaled Oxygen Concentration - - Weight 111.2 kg (245 lb 3.2 oz) 09/11/2025 9:26 AM CDT Height 180.3 cm (5' 11) 09/11/2025 9:26 AM CDT Body Mass Index 34.2 09/11/2025 9:26 AM CDT Plan of Treatment Health Maintenance Due Date Last Done Comments Colon Cancer Screening-Colonoscopy 1953 Depression Screening 1953 Hepatitis C Screening 1953 Hepatitis B Screening 1971 Zoster Vaccine (1 of 2) 2003 Well Visit 65+ 2018 Pneumococcal vaccine 65+ (2 of 2 - PCV20 or PCV21) 09/19/2020 09/19/2019 Covid-19 Vaccine (4 - 2024-2 6 season) 2025 12/17/2021, 03/25/2021, 03/04/2021 Influenza Vaccine (#1) 2025 4, 12/17/2021, 09/18/2020, Additional history exists Fall Risk Assessment 09/28/2025 09/28/2024 DTaP/Tdap/Td Vaccine (2 - Td or Tdap) 11/10/2027 11/10/2017 Procedures Procedure Name Priority Date/Time Associated Diagnosis Comments US RENAL LIMITED INCLUDING DUPLEX DOPPLER BILATERAL COMPLETE (C) Schedule Routine, Read Routine (OP Routine) 07/18/2025 9:55 AM CDT Resistant hypertension Chronic kidney disease, stage 3a (HCC) POCT LIPID PANEL Routine 07/06/2025 9:44 AM CDT Lipid screening from Last 3 Months Results * US Renal Limited Including Duplex Doppler Bilateral Complete (C) (07/18/2025 9:55 AM CDT) Anatomical Region Laterality Modality Vascular N/A Ultrasound 07/18/2025 11:0 1 AM CDT Addenda Addendum by Krunal Rivera II, DO on 10/03/2025 1:41 PM PIERCING ARTIST Right renal vein is patent. Electronically signed by: Krunal Rivera II, D.O. Impressions 07/18/2025 11:01 AM CDT 1. Left nephrectomy. 2. No evidence of right renal artery stenosis. Electronically signed by: Krunal Rivera II, D.O. Narrative 07/18/2025 11:01 AM CDT Renal Doppler ultrasound. COMPARISON: Resistant hypertension History: None TECHNIQUE: Grayscale and color Doppler images were obtained through both kidneys. Subsequently, evaluation of renal arterial flow was obtained with measurements of renal artery velocities obtained. FINDINGS: The kidneys are symmetric in size bilaterally and demonstrate normal echogenicity. Both kidneys demonstrate normal flow on color Doppler imaging. No nephrolithiasis or hydroureteronephrosis is demonstrated. Renal size (cm): Right: 11.8 x 6.1 x 5.3 Aortic velocity (cm/sec): 122 Renal artery velocities (cm/sec): Right: Origin: 132 Proximal: 72 Mid: 75 Hilum: 63 Renal/AO ratio: 1.08 Procedure Note Krunal Rivera II, DO - 07/18/2025 Renal Doppler ultrasound. COMPARISON: Resistant hypertension History: None TECHNIQUE: Grayscale and color Doppler images were obtained through both kidneys. Subsequently, evaluation of renal arterial flow was obtained with measurements of renal artery velocities obtained. FINDINGS: The kidneys are symmetric in size bilaterally and demonstrate normal echogenicity. Both kidneys demonstrate normal flow on color Doppler imaging. No nephrolithiasis or hydroureteronephrosis is demonstrated. Renal size (cm): Right: 11.8 x 6.1 x 5.3 Aortic velocity (cm/sec): 122 Renal artery velocities (cm/sec): Right: Origin: 132 Proximal: 72 Mid: 75 Hilum: 63 Renal/AO ratio: 1.08 IMPRESSION: 1. Left nephrectomy. 2. No evidence of right renal artery stenosis. Electronically signed by: Amari Turner IIODestinee Clemente Blankenship MD IMG US PROCEDURES Edited Result - Final * (ABNORMAL) POCT lipid panel (07/06/2025 9:44 AM CDT) Cholesterol, POC 179 <200 MG/DL HDL, POC 53 >=40 mg/dL Triglycerides, POC 152(A) <=149 mg/dL LDL Cholesterol POC 96 <=129 mg/dL Chol/HDL Ratio, POC 3.4 NONE Non-HDL Cholesterol, POC 126 NONE mg/dL Cholesterol Total, POC 179 30 - 199 mg/dL Capillary blood 07/06/2025 9 :44 AM CDT Clemente Blankenship MD POINT OF CARE TEST ORDER MANNY Final Result from Last 3 Months Insurance [facility] MEDICARE ADVANTAGE [facility] MEDICARE Address: [facility] [address] [place] [address] [facility] MEDICARE ADVANTAGE [facility] MEDICARE Address: [facility] [address] [place] [address] Advance Directives For more information, please contact: [phone] * Full Code (Latest Code Status on File) Date Activated Date Inactivated Comments 09/26/2024 2:58 PM 09/28/2024 4:42 PM Care Teams Canopy Stringer Relationship Specialty [place] [address] [place] [address] PCP - General Internal Medicine 06/30/25 [place] [address] [place] [address] Consulting Physician Urology 09/28/24
[2025-10-06 11:02] LABS: Albumin Level 4.3 g/dL (3.5-5.1); Anion Gap 6 mmol/L (4-12); Blood Urea Nitrogen 23 mg/dL (9-20); Calcium 9.9 mg/dL (8.4-10.2); Carbon Dioxide 27 mmol/L (22-30); Chloride 99 mmol/L (98-107); Estimated Glomerular Filt Rate > 60; Glucose 114 mg/dL (65-110); Potassium 4.9 mmol/L (3.4-5.0); Sodium 132 mmol/L (137-145)
[2025-10-06 11:04] LABS: Total Protein Urine Random 7 mg/dL; Ur Ttl Prot Creatinine Ratio 0.07 mg/mg (0-0.20)
[2025-10-06 11:14] LABS: Parathyroid Intact 48.4 pg/mL (14.5-75.2)
== END 2025-10-06 10:07 | disposition home or self-care (01) ==
LOC: ANHLAB 10:12
PROVIDERS: PCP Internal Medicine; Visit Provider Internal Medicine Nephrology
DX: R94.4 Abnormal results of kidney function studies (principal); E87.1 Hypo-osmolality and hyponatremia; N18.9 Chronic kidney disease, unspecified
CPT/HCPCS: 36415; 80069; 82533; 82570; 83970; 84156; 85027